=== PATIENT | male | born 1955 | race Caucasian/White ===

== ENCOUNTER → 2017-06-14 | Outpatient (CLI) | payer OTHER | LOC: M WUC 17:43 | DX: S86.111A Strain of other muscle(s) and tendon(s) of posterior muscle group at lower leg level, right leg, initial encounter (principal); R60.9 Edema, unspecified; X58.XXXA Exposure to other specified factors, initial encounter; Y93.9 Activity, unspecified | CPT/HCPCS: 73590 ==

== ENCOUNTER → 2020-05-22 | Outpatient (REF) | payer OTHER | LOC: M LAB REF 13:44 | PROVIDERS: ATTEND Physician Assistant | DX: L40.9 Psoriasis, unspecified (principal) ==

== ENCOUNTER → 2021-01-13 | Outpatient (REF) | payer OTHER | LOC: M SMT 08:54 | PROVIDERS: ATTEND Urology | DX: R97.20 Elevated prostate specific antigen [PSA] (principal) ==

== ENCOUNTER → 2021-03-04 | Outpatient (CLI) | payer OTHER ==
[~2021-03-04] MED LIST: FLON1SPR; RIZA10TA58 PO; VERA120T71 PO
== END ==
LOC: M LABSMTC 10:22
PROVIDERS: ATTEND Anesthesiology
DX: Z01.812 Encounter for preprocedural laboratory examination (principal); Z20.822 Contact with and (suspected) exposure to COVID-19

== ENCOUNTER 2021-03-09 06:20 | Inpatient (IN) | payer OTHER ==
[~2021-03-09] VITALS: Ht 176.5 cm; Wt 98.8 kg
[~2021-03-09 06:20] MED LIST changes: +HEPARIN SOD (PORCINE) 5000UNITS/ML 1ML VIAL/SYRINGE SQ ONE; +LR 1,000 ML IV ONE; +ceFAZolin SOD 2 GM in IV 1 EA IV ONE
--- OUTSIDE RECORDS SUMMARY | 2021-03-09 06:25 | CCD ---
Author Author [facility] Organization [facility] Address Unknown Phone Unavailable Care Team Providers Care Commercial Credit Head Name Role Phone Edie Bryce Unavailable PROBLEMS Type Condition ICD9-CM Code [id number] Code Onset Dates Condition S tatus W/U Status Risk SNOMED Code Notes Problem Psoriasis vulgaris L40.0 Active confirmed 2 37375754 Problem Prostate cancer C61 Active confirmed 3990 54261 Problem Rosacea L71.9 Active confirmed 690014278 Problem Psoriasis L40.9 Active confirmed 0263170 ALLERGIES No Known Allergies ENCOUNTERS from 1955 to 2021-02-04 Encounter Location Date Provider Diagnosis [facility] [address] [phone] [place] [address] Jan, Bryce Irizarry Prostate cancer C61 IMMUNIZATIONS No Information SOCIAL HISTORY Tobacco Use: Social History Observation Description Date Details (start date - stop date) Current Smoker Sex Assigned At : Social History Observation Description Sex Assigned At Unknown Language: Question Answer Notes Languages spoken: Turkmen Amish: Question Answer Notes Amish No mormon beliefs that would impact health care. Alcohol Screening: Question Answer Notes Did you have a drink containing alcohol in the past year? Ye s Points 3 Interpretation Negative How many drinks did you have on a typica l day when you were drinking in the past year? 3 or 4 (1 point) How often did you have a drink containing alcohol in t he past year? Two to four times a month (2 points) Tobacco Use: Question Answer Notes Are you a: current smoker Are you interested in quitting? Ready to quit REASON FOR REFERRAL No Information VITAL SIGNS No information MEDICATIONS Medication SIG (Take, Route, Frequency, Duration) Notes Start Da te End Date Status Cipro 500 MG 1 tablet Orally Start day prior to biopsy for 3 days Jun, Not-Taking Cipro 500 MG 1 tablet Orally every 12 hrs for 3 day(s) Dec, Not-Taking Yanira Allergy 180 MG 1 tablet Orally Once a day for 30 day(s) Active Ciclopirox Olamine 0.77 % 1 application Externally Twice a day f or 30 days Apr, Not-Taking Protopic 0.1 % 1 application to psoriasis p tj Externally Apply nightly to rash on penis as instructed for 30 Days Sep, Not-Taking Fleet Enema 7-19 GM/118ML as directed Rectal once Dec, Not-Taking Fexofenadine HCl Not-Taki ng Tinactin 1 % 1 application Externally Once a day Not-Taking Nasal Saline Not-Taking PROCEDURES No Information RESULTS No Results REASON FOR VISIT No Information MEDICAL (GENERAL) HISTORY Type Description Date Medical History elevated psa Medical History Prostate cancer Surgical History Steel Plate L Toe Surgical History carpal tunnel bilateral Surgical History cubital tunnel Surgical History trus biopsy 01/13/21 Goals Section No Information Health Concerns No Information MEDICAL EQUIPMENT No Information MENTAL STATUS No Information FUNCTIONAL STATUS No Information ASSESSMENTS Encounter Date Diagnosis Assessment Notes Treatment Notes Treatm ent Clinical Notes Jan, Prostate cancer (ICD-10 - C61) PLAN OF TREATMENT Treatment Notes Test Name Order Date Comprehensive Metabolic Profile (CMP) 2021-01-25 CBC - Complete Blood Count 2021-01-25 URINE CULTURE 2021-01-25 [facility] Chest, 2 view (PA\Lat) 2021-01-25 Electrocardiogram (EKG) 2021-01-25 Next Appt Details Provider Name:Paulo Wilson, 03:00:00 PM, [address], , [place], [address], Provider Name:Bhavna Mendez, 07:30:00 AM, [address] [place] [address], , [place], [address], Insurance Providers Payer Name Payer Address Payer Phone Insured Name Patient Relati onship to Insured Coverage Start Date Coverage End Date [employer] [address] [place] [address] BRY CASEY
--- OUTSIDE RECORDS SUMMARY | 2021-03-09 06:25 | CCD ---
Author Author [facility] Organization [facility] Address Unknown Phone Unavailable Care Team Providers Care Radio Director Name Role Phone Steve, Paulo Unavailable PROBLEMS Type Condition ICD9-CM Code [id number] Code Onset Dates Condition S tatus W/U Status Risk SNOMED Code Notes Problem Prostate cancer C61 Active confirmed 3990 90631 Problem Preop testing Z01.818 Active confirmed 98446 9001 Problem Malignant neoplasm of prostate C61 Active confir med 773408515 Problem Rosacea L71.9 Active confirmed 962838596 Problem Psoriasis L40.9 Active confirmed 2479480 Problem Psoriasis vulgaris L40.0 Active confirmed 2 80168332 ALLERGIES No Known Allergies ENCOUNTERS from 1955 to 2021-02-12 Encounter Location Date Provider Diagnosis [facility] [address] [phone] [place] [address] Jan, Paulo Wilson Prostate cancer C61 and Preop testing Z0 1.818 IMMUNIZATIONS No Information SOCIAL HISTORY Tobacco Use: Social History Observation Description Date Details (start date - stop date) Current Smoker Sex Assigned At : Social History Observation Description Sex Assigned At Unknown Language: Question Answer Notes Languages spoken: [place] Mandaen: Question Answer Notes Mandaen No anabaptism beliefs that would impact health care. Alcohol [...] Information RESULTS No Results REASON FOR VISIT Surgery MEDICAL (GENERAL) HISTORY Type Description Date Medical [...] Notes Jan, Prostate cancer (ICD-10 - C61) Jan, Preop testing (ICD-10 - Z01.818) PLAN OF TREATMENT Treatment Notes Test Name Order Date PT & APTT 2021-02-04 Next Appt Details Provider Name:Viki Hahn, 2021-02-23 4 08:30:00 AM, [address], , [place], [address], Provider Name:Bhavna Mendez, 07:30:00 AM, [address] [place] [address], , [place], [address], Insurance Providers Payer Name Payer Address Payer Phone Insured Name Patient Relati onship to Insured Coverage Start Date Coverage End Date [facility] [address] [facility] [phone] BRY CASEY
--- OUTSIDE RECORDS SUMMARY | 2021-03-09 06:25 | CCD ---
Author Author [facility] Organization [facility] Address Unknown Phone Unavailable Care Team Providers Care C S S Representative Name Role Phone Steve Paulo Unavailable PROBLEMS Type Condition ICD9-CM Code UJA68-EU Code Onset Dates Condition S tatus W/U Status Risk SNOMED Code Notes Problem Prostate cancer C61 Active confirmed 3990 01011 Problem Preop testing Z01.818 Active confirmed 23698 9001 Problem Malignant neoplasm of prostate C61 Active confir med 022549203 Problem Rosacea L71.9 Active confirmed 789707397 Problem Psoriasis L40.9 Active confirmed 6461278 Problem Psoriasis vulgaris L40.0 Active confirmed 2 00609528 ALLERGIES No Known Allergies ENCOUNTERS from 1955 to 2021-02-12 Encounter Location Date Provider Diagnosis [facility] [address] [phone] [place] [address] Jan, Paulo Wilson IMMUNIZATIONS No Information SOCIAL HISTORY Tobacco Use: Social History Observation Description Date Details (start date - stop date) Current Smoker Sex Assigned At : Social History Observation Description Sex Assigned At Unknown Language: Question Answer Notes Languages spoken: Malian Latter-Day: Question Answer Notes Latter-Day No mandaeism beliefs that would impact health care. Alcohol [...] Information RESULTS No Results REASON FOR VISIT post op appt MEDICAL (GENERAL) HISTORY Type Description Date Medical History elevated psa Medical History Prostate cancer Surgical History Steel Plate L Toe Surgical History carpal tunnel bilateral Surgical History cubital tunnel Surgical History trus biopsy 01/13/21 Goals Section No Information Health Concerns No Information MEDICAL EQUIPMENT No Information MENTAL STATUS No Information FUNCTIONAL STATUS No Information ASSESSMENTS No Information PLAN OF TREATMENT Next Appt Details Provider Name:Viki Hahn, 2021-02-23 4 08:30:00 AM, [address] , , [place], [address], Provider Name:Bhavna Mendez, 07:30:00 AM, [address] [place] [address], , [place], [address], Insurance Providers Payer Name Payer Address Payer Phone Insured Name Patient Relati onship to Insured Coverage Start Date Coverage End Date [employer] [address] [place] [phone] BRY CASEY
--- OUTSIDE RECORDS SUMMARY | 2021-03-09 06:25 | CCD ---
Author Author [facility] [employer] Organization [facility] [employer] Address Unknown Phone Unavailable Care Team Providers Care Postal Support Employee Name Role Phone Bryce Irizarry Unavailable PROBLEMS Type Condition ICD9-CM Code [id number] Code Onset Dates Condition S tatus W/U Status Risk SNOMED Code Notes Problem Psoriasis vulgaris L40.0 Active confirmed 2 49903495 Problem Prostate cancer C61 Active confirmed 3990 01139 Problem Rosacea L71.9 Active confirmed 559632475 Problem Psoriasis L40.9 Active confirmed 9327813 ALLERGIES No Known Allergies ENCOUNTERS from 1955 to 2021-01-21 Encounter Location Date Provider Diagnosis [facility] [address] [phone] [place] [address] Dec, Bryce Irizarry Elevated PSA R97.20 IMMUNIZATIONS No Information SOCIAL HISTORY Tobacco Use: Social History Observation Description Date Details (start date - stop date) Current Smoker Sex Assigned At : Social History Observation Description Sex Assigned At Unknown Language: Question Answer Notes Languages spoken: Zimbabwean Mormonism: Question Answer Notes Mormonism No worship beliefs that would impact health care. Alcohol [...] REASON FOR REFERRAL No Information VITAL SIGNS Weight 218 lbs 22 Dec, 2020 Height 69 in Dec, BMI 32.19 kg/m2 Dec, Heart Rate 71 /min Dec, Respiratory Rate 18 /min Dec, Temperature 98.4 degrees Fahrenheit Dec, Oximetry 95 Dec, Blood pressure systolic 136 mm Hg Dec, Blood pressure diastolic 80 mm Hg Dec, MEDICATIONS Medication SIG (Take, Route, Frequency, Duration) [...] a day Not-Taking Nasal Saline Not-Taking PROCEDURES from 1955 to 2021-01-21 Procedure Date Ordered Result Body Site Medication: Bupivacaine 0.25% Dilutent 30ml (Marcaine) 2020-12-24 2 N/A Medication: 2% Lidocaine Dilutent 2021-01-13 N/A Med: Lidocaine Jelly 2% 6ml Intravesically (Glydo) 2021-01-13 N/A RESULTS No Results REASON FOR VISIT TRUS bx MEDICAL (GENERAL) HISTORY Type Description Date Medical [...] Notes Treatment Notes Treatm ent Clinical Notes Dec, Elevated PSA (ICD-10 - R97.20) PLAN OF TREATMENT Treatment Notes Test Name Order Date Pathology Request For Service (Urology Only) 2020-12-24 2 PLZ PROSTATE BIOPSY 2021-01-13 Next Appt Details 1 to 2-week Reason:Status post prostate biopsy Provider Name:Bhavna Bea Mendez, 07:30:00 AM, [address] [place] [address], , [place], [address], Follow Up:1 to 2-weekStatus post prostate biopsy Insurance Providers Payer Name Payer Address Payer Phone Insured Name Patient Relati onship to Insured Coverage Start Date Coverage End Date [facility] [address] [facility] [id number] BRY CASEY
--- OUTSIDE RECORDS SUMMARY | 2021-03-09 06:25 | CCD ---
Author Author [facility] Organization [facility] Address Unknown Phone Unavailable Care Team Providers Care Charge Hand Name Role Phone Aj Maher Unavailable PROBLEMS Type Condition ICD9-CM Code GUC27-IF Code Onset Dates Condition S tatus W/U Status Risk SNOMED Code Notes Problem Psoriasis L40.9 Active confirmed 4540957 Problem Psoriasis vulgaris L40.0 Active confirmed 2 82668603 Problem Rosacea L71.9 Active confirmed 600147021 ALLERGIES No Known Allergies ENCOUNTERS from 1955 to 2021-01-11 Encounter Location Date Provider Diagnosis [facility] [address] [phone] [place] [address] Dec, Aj Maher Elevated PSA R97.20 and Elevated PSA, le ss than 10 ng/ml R97.20 IMMUNIZATIONS No Information SOCIAL HISTORY Tobacco Use: Social History Observation Description Date Details (start date - stop date) Current Smoker Sex Assigned At : Social History Observation Description Sex Assigned At Unknown Language: Question Answer Notes Languages spoken: Cayman Islander Methodist: Question Answer Notes Methodist No adventist beliefs that would impact health care. Alcohol [...] No Information VITAL SIGNS Weight 218 lbs 14 Sep, 2021 Weight-kg 98.88 kg Dec, Height 69 in Dec, BMI 32.19 kg/m2 Dec, Heart Rate 77 /min Dec, Respiratory Rate 18 /min Dec, Temperature 97.6 degrees Fahrenheit Dec, Oximetry 97 Dec, Blood pressure systolic 140 mm Hg Dec, Blood pressure diastolic 86 mm Hg Dec, MEDICATIONS Medication SIG (Take, Route, Frequency, Duration) Notes Start Da te End Date Status Fleet Enema 7-19 GM/118ML as directed Rectal once Dec, Active Cipro 500 MG 1 tablet Orally Start day prior to biopsy for 3 days Jun, Not-Taking Cipro 500 MG 1 tablet Orally every 12 hrs for 3 day(s) Dec, Active Fexofenadine HCl Not-Taki ng Yanira Allergy 180 MG 1 tablet Orally Once a day for 30 day(s) Active Protopic 0.1 % 1 application to psoriasis p tj Externally Apply nightly to rash on penis as instructed for 30 Days Sep, Active Nasal Saline Active Tinactin 1 % 1 application Externally Once a day Not-Taking Ciclopirox Olamine 0.77 % 1 application Externally Twice a day f or 30 days Apr, Active PROCEDURES No Information RESULTS No Results REASON FOR VISIT elevated psa MEDICAL (GENERAL) HISTORY Type Description Date Medical History elevated psa Surgical History Steel Plate L Toe Surgical History carpal tunnel bilateral Surgical History cubital tunnel Goals Section No Information Health Concerns No Information MEDICAL EQUIPMENT No Information MENTAL STATUS No Information FUNCTIONAL STATUS No Information ASSESSMENTS Encounter Date Diagnosis Assessment Notes Treatment Notes Treatm ent Clinical Notes Dec, Elevated PSA (ICD-10 - R97.20) Risk, benefits and complications of receiving a transrectal ultrasound biopsy of the prostates were discussed with the patient. Consent form was signed. He was scheduled for transrectal ultrasound biopsy of the prostate Dec, Elevated PSA, less than 10 ng/ml (ICD-10 - R97.2 0) PLAN OF TREATMENT Medication Medication Name Sig Start Date Stop Date Cipro 500 MG 1 tablet Orally every 12 hrs for 3 day(s) Dec Fleet Enema 7-19 GM/118ML as directed Rectal once Dec, Treatment Notes Assessment Notes Clinical Notes Elevated PSA Risk, benefits and c omplications of receiving a transrectal ultrasound biopsy of the prostates were discussed with the patient. Consent form was signed. He was scheduled for transrectal ultrasound biopsy of the prostate Treatment Notes Test Name Order Date BIOPSY OF PROSTATE 2021-01-05 Next Appt Details Provider Name:Bryce Guerra Rachellisetryne, 2020-12-24 2 01:00:00 PM, [address], , [place], [address], Provider Name:Bryce Guerra Edie, 2020-12-24 8 01:00:00 PM, [address], , [place], [address], Provider Name:Bhavna Bea Mendez, 07:30:00 AM, [address] [place] [address], , [place], [address], Insurance Providers Payer Name Payer Address Payer Phone Insured Name Patient Relati onship to Insured Coverage Start Date Coverage End Date [facility] [address] [facility] [phone] BRY CASEY
--- OUTSIDE RECORDS SUMMARY | 2021-03-09 06:25 | CCD ---
Author Author [facility] [employer] [facility] Organization [facility] [employer] [facility] Address Unknown Phone Unavailable Care Team Providers Care Portfolio Architect Name Role Phone Bryce Irizarry Unavailable PROBLEMS Type Condition ICD9-CM Code LBI38-LV Code Onset Dates Condition S tatus W/U Status Risk SNOMED Code Notes Problem Psoriasis vulgaris L40.0 Active confirmed 2 60264170 Problem Prostate cancer C61 Active confirmed 3990 70989 Problem Rosacea L71.9 Active confirmed 451900624 Problem Psoriasis L40.9 Active confirmed 8535177 ALLERGIES No Known Allergies ENCOUNTERS from 1955 to 2021-01-21 Encounter Location Date Provider Diagnosis [facility] [address] [phone] [place] [address] Dec, Bryce Irizarry Prostate cancer C61 IMMUNIZATIONS No Information SOCIAL HISTORY Tobacco Use: Social History Observation Description Date Details (start date - stop date) Current Smoker Sex Assigned At : Social History Observation Description Sex Assigned At Unknown Language: Question Answer Notes Languages spoken: Bhutanese Orthodoxy: Question Answer Notes Orthodoxy No mandaeism beliefs that would impact health [...] No Information VITAL SIGNS Weight 218 lbs 28 Dec, 2020 Height 69 in Dec, BMI 32.19 kg/m2 Dec, Heart Rate 72 /min Dec, Respiratory Rate 18 /min Dec, Temperature 98.4 degrees Fahrenheit Dec, Oximetry 94 Dec, Blood pressure systolic 132 mm Hg Dec, Blood pressure diastolic 78 mm Hg Dec, MEDICATIONS Medication SIG (Take, [...] Information RESULTS No Results REASON FOR VISIT TRUS f/u MEDICAL (GENERAL) HISTORY Type Description Date Medical [...] Treatment Notes Treatm ent Clinical Notes Dec, Prostate cancer (ICD-10 - C61) Dec, Other Prostatectomy material was p rinted PLAN OF TREATMENT Next Appt Details To meet Dr. Wilson Reason:Prostate can cer Provider Name:Bhavna Figueredo Vanessa, 07:30:00 AM, [address] [facility], , [place], [address], Follow Up:[facility] Insurance Providers Payer Name Payer Address Payer Phone Insured Name Patient Relati onship to Insured Coverage Start Date Coverage End Date [facility] [place] [address] [place] [phone] BRY CASEY
--- OUTSIDE RECORDS SUMMARY | 2021-03-09 06:25 | CCD ---
Author Author [facility] Organization [facility] [employer] Address Unknown Phone Unavailable Care Team Providers Care Salesperson Stereo Equipment Name Role Phone Bryce Irizarry Unavailable PROBLEMS Type Condition ICD9-CM Code UEF62-ZD Code Onset Dates Condition S tatus W/U Status Risk SNOMED Code Notes Problem Prostate cancer C61 Active confirmed 3990 20644 Problem Preop testing Z01.818 Active confirmed 14302 9001 Problem Malignant neoplasm of prostate C61 Active confir med 729009318 Problem Rosacea L71.9 Active confirmed 105805670 Problem Psoriasis L40.9 Active confirmed 6636741 Problem Psoriasis vulgaris L40.0 Active confirmed 2 42963725 ALLERGIES No Known Allergies ENCOUNTERS from 1955 to 2021-02-12 Encounter Location Date Provider Diagnosis [facility] [address] [phone] [place] [address] Jan, Bryce Irizarry IMMUNIZATIONS No Information SOCIAL HISTORY Tobacco Use: Social History Observation Description Date Details (start date - stop date) Current Smoker Sex Assigned At : Social History Observation Description Sex Assigned At Unknown Language: Question Answer Notes Languages spoken: Japanese Pentecostal: Question Answer Notes Pentecostal No sikh beliefs that would impact health care. Alcohol [...] OF TREATMENT Next Appt Details Provider Name:Viki Bea Hahn, 2021-02-23 4 08:30:00 AM, [address] [facility], , [place], [address], Provider Name:Bhavna Mendez, 07:30:00 AM, [address] [place] [address], , [place], [address], Insurance Providers Payer Name Payer Address Payer Phone Insured Name Patient Relati onship to Insured Coverage Start Date Coverage End Date [employer] [address] [place] [phone] BRY CASEY
--- OUTSIDE RECORDS SUMMARY | 2021-03-09 06:25 | CCD ---
Author Author [facility] [employer] Organization [facility] [employer] Address Unknown Phone Unavailable Care Team Providers Care Commodity Management Specialist Name Role Phone Lisandraryne Bryce Unavailable PROBLEMS Type Condition ICD9-CM Code [id number] Code Onset Dates Condition S tatus W/U Status Risk SNOMED Code Notes Problem Psoriasis L40.9 Active confirmed 0951812 Problem Psoriasis vulgaris L40.0 Active confirmed 2 76689422 Problem Rosacea L71.9 Active confirmed 373536630 ALLERGIES No Known Allergies ENCOUNTERS from 1955 to 2021-01-12 Encounter Location Date Provider Diagnosis [facility] Urology [address] [phone] [place] [address] Dec, Bryce Irizarry IMMUNIZATIONS No Information SOCIAL HISTORY Tobacco Use: Social History Observation Description Date Details (start date - stop date) Current Smoker Sex Assigned At : Social History Observation Description Sex Assigned At Unknown Language: Question Answer Notes Languages spoken: Albanian Samaritan: Question Answer Notes Samaritan No jew beliefs that would impact health care. Alcohol [...] Information RESULTS No Results REASON FOR VISIT 01/13/2021 appt MEDICAL (GENERAL) HISTORY Type Description Date Medical History elevated psa Surgical History Steel Plate L Toe Surgical History carpal tunnel bilateral Surgical History cubital tunnel Goals Section No Information Health Concerns No Information MEDICAL EQUIPMENT No Information MENTAL STATUS No Information FUNCTIONAL STATUS No Information ASSESSMENTS No Information PLAN OF TREATMENT Medication Medication Name Sig Start Date Stop Date Cipro 500 MG 1 tablet Orally every 12 hrs for 3 day(s) Dec Fleet Enema 7-19 GM/118ML as directed Rectal once Dec, Next Appt Details Provider Name:Byrce Irizarry, 2020-12-24 2 01:00:00 PM, [address], , [place], [address], Provider Name:Bryce Irizarry, 2020-12-24 8 01:00:00 PM, [address], , [place], [address], Provider Name:Bhavna Mendez, 07:30:00 AM, [address] [place] [address], , [place], [place], [address], Insurance Providers Payer Name Payer Address Payer Phone Insured Name Patient Relati onship to Insured Coverage Start Date Coverage End Date [facility] [address] [facility] [phone] BRY CASEY
--- OUTSIDE RECORDS SUMMARY | 2021-03-09 06:26 | CCD ---
Author Author [facility] Organization [facility] Address Unknown Phone Unavailable Care Team Providers Care Crimp Setter Name Role Phone Rogers Rosen MD Unavailable Rosen, G Edward MD Unavailable Rosen, G Edward MD Unavailable Rosen, G Edward MD Unavailable Rosen, G Edward MD Unavailable Rosen, G Edward MD Unavailable Rosen, G Edward MD Unavailable Rosen, G Edward MD Unavailable Rosen, G Edward MD Unavailable Rosen, G Edward MD Unavailable Rosen, G Edward MD Unavailable Rosen, G Edward MD Unavailable Rosen, G Edward MD Unavailable Rosen, G Edward MD Unavailable Rosen, G Edward MD Unavailable Rosen, G Edward MD Unavailable Rosen, G Edward MD Unavailable Rosen, G Edward MD Unavailable Rosen, G Edward MD Unavailable Rosen, G Edward MD Unavailable Rosen, G Edward MD Unavailable Rosen, G Ewdard MD Unavailable Rosen, G Edward MD Unavailable Rosen, G Edward MD Unavailable Rosen, G Edward MD Unavailable Rosen, G Edward MD Unavailable Rosen, G Edward MD Unavailable Rosen, G Edward MD Unavailable Rosen, G Edward MD Unavailable Rosen, G Edward EASTON Unavailable Rosen, G Edward EASTON Unavailable Rosen, G Edward MD Unavailable Rosen, G Edward EASTON Unavailable Rosen, G Edward EASTON Unavailable Rosen, G Edward EASTON Unavailable Rosen, G Edward MD Unavailable Rosen, G Edward MD Unavailable Rosen, G Edward MD Unavailable Rosen, G Edward EASTON Unavailable Rosen, G Edward EASTON Unavailable Rosen, G Edward EASTON Unavailable Rosen, G Edward EASTON Unavailable Rosen, G Edward EASTON Unavailable Rosen, G Edward EASTON Unavailable Rosen, G Edward EASTON Unavailable Rosen, G Edward EASTON Unavailable Rosen, G Edward EASTON Unavailable Nurys AGEE MD Unavailable Unavailable Nurys AGEE MD Unavailable Unavailable Nurys AGEE MD Unavailable Unavailable Nurys AGEE MD Unavailable Unavailable Sachi Maharaj MD Unavailable Unavailable Bea RODRIGUEZ MD Unavailable Unavailable Bea RODRIGUEZ MD Unavailable Unavailable Bea RORDIGUEZ MD Unavailable Unavailable Bea RODRIGUEZ MD Unavailable Unavailable Bea RODRIGUEZ MD Unavailable Unavailable Bea RODRIGUEZ MD Unavailable Unavailable Bea RODRIGUEZ MD Unavailable Unavailable Bea RODRIGUEZ MD Unavailable Unavailable Bea RODRIGUEZ MD Unavailable Unavailable Bea RODRIGUEZ MD Unavailable Unavailable Bea RODRIGUEZ MD Unavailable Unavailable Bea RODRIGUEZ MD Unavailable Unavailable Bea RODRIGUEZ MD Unavailable Unavailable Bea RODRIGUEZ MD Unavailable Unavailable Bea RODRIGUEZ MD Unavailable Unavailable Bea RODRIGUEZ MD Unavailable Unavailable Bea RODRIGUEZ MD Unavailable Unavailable Bea RODRIGUEZ MD Unavailable Unavailable Bea RODRIGUEZ MD Unavailable Unavailable Bea RODRIGUEZ MD Unavailable Unavailable Bea RODRIGUEZ MD Unavailable Unavailable Bea RODRIGUEZ MD Unavailable Unavailable Bea RODRIGUEZ MD Unavailable Unavailable Bea RODRIGUEZ MD Unavailable Unavailable Bea RODRIGUEZ MD Unavailable Unavailable Bea RODRIGUEZ MD Unavailable Unavailable Bea RODRIGUEZ MD Unavailable Unavailable Bea RODRIGUEZ MD Unavailable Unavailable Bea RODRIGUEZ MD Unavailable Unavailable Bea RODRIGUEZ MD Unavailable Unavailable Bea RODRIGUEZ MD Unavailable Unavailable Bea RODRIGUEZ MD Unavailable Unavailable Bea RODRIGUEZ MD Unavailable Unavailable Bea RODRIGUEZ MD Unavailable Unavailable Bea RODRIGUEZ MD Unavailable Unavailable Bea RODRIGUEZ MD Unavailable Unavailable Bea RODRIGUEZ MD Unavailable Unavailable Bea RODRIGUEZ MD Unavailable Unavailable Bea RODRIGUEZ MD Unavailable Unavailable Bea RODRIGUEZ MD Unavailable Unavailable Bea RODRIGUEZ MD Unavailable Unavailable Ashwini, Albert Roth MD Unavailable Unavailable Ashwini, Albert Aragonodavid EASTON Unavailable Unavailable Ashwini, Albert Aragonodavid EASTON Unavailable Unavailable Ashwini, Albert Aragonodavid EASTON Unavailable Unavailable Ashwini, Albert Aragonodavid EASTON Unavailable Unavailable Ashwini, Albert Aragonodavid EASTON Unavailable Unavailable Ashwini, Albert Aragonodavid EASTON Unavailable Unavailable Ashwini, Albert Aragonodavid EASTON Unavailable Unavailable Ashwini, R Gonzalez MD Unavailable Unavailable Ashwini, Albert Aragonodavid EASTON Unavailable Unavailable Ashwini, R Gonzalez MD Unavailable Unavailable Ashwini, R Gonzalez MD Unavailable Unavailable Ashwini, R Gonzalez MD Unavailable Unavailable Ashwini, R Gonzalez MD Unavailable Unavailable Ashwini, R Gonzalez MD Unavailable Unavailable Ashwini, R Gonzalez MD Unavailable Unavailable Ashwini, R Gonzalez MD Unavailable Unavailable Ashwini, R Gonzalez MD Unavailable Unavailable Ashwini, R Gonzalez MD Unavailable Unavailable Ashwini, R Gonzalez MD Unavailable Unavailable Ashwini, R Gonzalez MD Unavailable Unavailable Ashwini, R Gonzalez MD Unavailable Unavailable Ashwini, R Gonzalez MD Unavailable Unavailable Ashwini, R Gonzalez MD Unavailable Unavailable Ashwini, R Gonzalez MD Unavailable Unavailable Ashwini, R Gonzalez MD Unavailable Unavailable Ashwini, R Gonzalez MD Unavailable Unavailable Ashwini, R Gonzalez MD Unavailable Unavailable Ashwini, R Gonzalez MD Unavailable Unavailable Ashwini, R Gonzalez MD Unavailable Unavailable Ashwini, R Gonzalez MD Unavailable Unavailable Ashwini, R Gonzalez MD Unavailable Unavailable Ashwini, R Gonzalez MD Unavailable Unavailable Ashwini, R Gonzalez MD Unavailable Unavailable Ashwini, R Gonzalez MD Unavailable Unavailable Ashwini, R Gonzalez MD Unavailable Unavailable Ashwini, R Gonzalez MD Unavailable Unavailable Ashwini, R Gonzalez MD Unavailable Unavailable Ashwini, R Gonzalez MD Unavailable Unavailable Ashwini, R Gonzalez MD Unavailable Unavailable Ashwini, R Goznalez MD Unavailable Unavailable Ashwini, R Gonzalez MD Unavailable Unavailable Ashwini, R Gonzalez MD Unavailable Unavailable Ashwini, R Gonzalez MD Unavailable Unavailable Ashwini, R Gonzalez MD Unavailable Unavailable Ashwini, R Gonzalez MD Unavailable Unavailable Ashwini, R Gonzalez MD Unavailable Unavailable Ashwini, R Gonzalez MD Unavailable Unavailable Ashwini, R Gonzalez MD Unavailable Unavailable Ashwini, R Gonzalez MD Unavailable Unavailable Ashwini, R Gonzalez MD Unavailable Unavailable Ashwini, R Gonzalez MD Unavailable Unavailable Ashwini, R Gonzalez MD Unavailable Unavailable Ashwini, R Gonzalez MD Unavailable Unavailable Ashwini, R Gonzalez MD Unavailable Unavailable Ashwini, R Gonzalez MD Unavailable Unavailable Ashwini, R Gonzalez MD Unavailable Unavailable Ashwini, R Gonzalez MD Unavailable Unavailable Ashwini, R Gonzalez MD Unavailable Unavailable Ashwini, R Gonzalez MD Unavailable Unavailable Ashwini, R Gonzalez MD Unavailable Unavailable Ashwini, R Gonzalez MD Unavailable Unavailable Ashwini, R Gonzalez MD Unavailable Unavailable Ashwini, R Gonzalez MD Unavailable Unavailable Ashwini, R Gonzalez MD Unavailable Unavailable Ashwini, R Gonzalez MD Unavailable Unavailable Ashwini, R Gonzalez Unavailable Unavailable Ashwini, R Gonzalez Unavailable Unavailable Ashwini, R Gonzalez MD Unavailable Unavailable Ashwini, R Gonzalez Unavailable Unavailable Ashwini, R Gonzalez MD Unavailable Unavailable Ashwini, R Gonzalez MD Unavailable Unavailable Ashwini, R Gonzalez Unavailable Unavailable Ashwini, R Gonzalez MD Unavailable Unavailable Ashwini, R Gonzalez MD Unavailable Unavailable Ashwini, R Gonzalez MD Unavailable Unavailable Ashwini, Albert Roth MD Unavailable Unavailable Ashwini, Albert Roth MD Unavailable Unavailable Ashwini, Albert Roth MD Unavailable Unavailable Erich, A Tiffany ENT NURSE Unavailable Unavailable Erich, A Tiffany ENT NURSE Unavailable Unavailable Erich, A Tiffany ENT NURSE Unavailable Unavailable Erich, A Tiffany ENT NURSE Unavailable Unavailable Erich, A Tiffany ENT NURSE Unavailable Unavailable Erich, A Tiffany ENT NURSE Unavailable Unavailable Erich, A Tiffany ENT NURSE Unavailable Unavailable Erich, A Tiffany ENT NURSE Unavailable Unavailable Erich, A Tiffany ENT NURSE Unavailable Unavailable Erich, A Tiffany ENT NURSE Unavailable Unavailable Erich, A Tiffany ENT NURSE Unavailable Unavailable Erich, A Tiffany ENT NURSE Unavailable Unavailable Erich, A Tiffany ENT NURSE Unavailable Unavailable Erich, A Tiffany ENT NURSE Unavailable Unavailable Erich, A Tiffany ENT NURSE Unavailable Unavailable Erich, A Tiffany ENT NURSE Unavailable Unavailable Erich, A Tiffany ENT NURSE Unavailable Unavailable Erich, A Tiffany ENT NURSE Unavailable Unavailable Erich, A Tiffany ENT NURSE Unavailable Unavailable Erich, A Tiffany ENT NURSE Unavailable Unavailable Erich, A Tiffany ENT NURSE Unavailable Unavailable Erich, A Tiffany ENT NURSE Unavailable Unavailable Erich, A Tiffany ENT NURSE Unavailable Unavailable Erich, A Tiffany ENT NURSE Unavailable Unavailable Erich, A Tiffany ENT NURSE Unavailable Unavailable Erich, A Tiffany ENT NURSE Unavailable Unavailable Erich, A Tiffany ENT NURSE Unavailable Unavailable Erich, A Tiffany ENT NURSE Unavailable Unavailable Erich, A Tiffany ENT NURSE Unavailable Unavailable Erich, A Tiffany ENT NURSE Unavailable Unavailable Erich, A Tiffany ENT NURSE Unavailable Unavailable Erich, A Tiffany ENT NURSE Unavailable Unavailable Erich, A Tiffany ENT NURSE Unavailable Unavailable Erich, A Tiffany ENT NURSE Unavailable Unavailable Erich, A Tiffany ENT NURSE Unavailable Unavailable Erich, A Tiffany ENT NURSE Unavailable Unavailable Erich, A Tiffany ENT NURSE Unavailable Unavailable Erich, A Tiffany ENT NURSE Unavailable Unavailable Erich, A Tiffany ENT NURSE Unavailable Unavailable Erich, A Tiffany ENT NURSE Unavailable Unavailable Erich, A Tiffany ENT NURSE Unavailable Unavailable Erich, A Tiffany ENT NURSE Unavailable Unavailable Erich, A Tiffany ENT NURSE Unavailable Unavailable Erich, A Tiffany ENT NURSE Unavailable Unavailable Erich, A Tiffany ENT NURSE Unavailable Unavailable Erich, A Tiffany ENT NURSE Unavailable Unavailable Erich, A Tiffany ENT NURSE Unavailable Unavailable Erich, A Tiffany ENT NURSE Unavailable Unavailable Erich, A Tiffany ENT NURSE Unavailable Unavailable of L.C[facility] Medicine Occupation Unavailable Unavailable Mathur, Shekhar Brown MD Unavailable Unavailable Mathur, Shekhar Brown MD Unavailable Unavailable Mathur, Shekhar Brown MD Unavailable Unavailable Mathur, Shekhar Brown MD Unavailable Unavailable Mathur, Shekhar Brown MD Unavailable Unavailable Mathur, Shekhar Brown MD Unavailable Unavailable Mathur, Shekhar Brown MD Unavailable Unavailable Mathur, Shekhar Brown MD Unavailable Unavailable Mathur, Shekhar Brown MD Unavailable Unavailable Mathur, Shekhar Brown MD Unavailable Unavailable Mathur, Shekhar Brown MD Unavailable Unavailable Mathur, Shekhar Brown MD Unavailable Unavailable Mathur, Shekhar Brown MD Unavailable Unavailable Mathur, Shekhar Brown MD Unavailable Unavailable Mathur, Shekhar Brown MD Unavailable Unavailable Mathur, Shekhar Brown MD Unavailable Unavailable Mathur, Shekhar Brown MD Unavailable Unavailable Mathur, Shekhar Brown MD Unavailable Unavailable Mathur, Shekhar Brown MD Unavailable Unavailable Mathur, Shekhar Brown MD Unavailable Unavailable Mathur, Shekhar Brown MD Unavailable Unavailable Mathur, Shekhar Brown MD Unavailable Unavailable Mathur, Shekhar Brown MD Unavailable Unavailable Mathur, Shekhar Brown MD Unavailable Unavailable Mathur, Shekhar Brown MD Unavailable Unavailable Mathur, Shekhar Brown MD Unavailable Unavailable Mathur, Shekhar Brown MD Unavailable Unavailable Mathur, Shekhar Brown MD Unavailable Unavailable Mathur, Shekhar Brown MD Unavailable Unavailable Mathur, Shekhar Brown MD Unavailable Unavailable Mathur, Shekhar Brown MD Unavailable Unavailable Mathur, Shekhar Brown MD Unavailable Unavailable Mathur, Shekhar Brown MD Unavailable Unavailable Mathur, Shekhar Brown MD Unavailable Unavailable Mathur, Shekhar Brown MD Unavailable Unavailable Mathur, Shekhar Brown MD Unavailable Unavailable Mathur, Shekhar Brown MD Unavailable Unavailable Mathur, Shekhra Brown MD Unavailable Unavailable Mathur, Shekhar Brown MD Unavailable Unavailable Shekhar Mathur MD Unavailable Unavailable Shekhar Mathur MD Unavailable Unavailable Mathur, Shekhar Brown MD Unavailable Unavailable Mathur, Shekhar Brown MD Unavailable Unavailable Mathur, Shekhar Brown MD Unavailable Unavailable Mathur, Shekhar Brown MD Unavailable Unavailable Mathur, Shekhar Brown MD Unavailable Unavailable Mathur, Shekhar Brown MD Unavailable Unavailable Mathur, Shekhar Brown MD Unavailable Unavailable Mathur, Shekhar Brown MD Unavailable Unavailable Mathur, Shekhar Brown MD Unavailable Unavailable Mathur, Shekhar Brown MD Unavailable Unavailable Mathur, Shekhar Brown MD Unavailable Unavailable Mathur, Shekhar Brown MD Unavailable Unavailable MathurShekhar MD Unavailable Unavailable AshwiniAlbert MD Unavailable Unavailable AshwiniAlbert MD Unavailable Unavailable Ashwini, Albert Roth MD Unavailable Unavailable AshwiniAlbert laboy MD Unavailable Unavailable AshwiniAlbert laboy MD Unavailable Unavailable Ashwini, Albert Roth MD Unavailable Unavailable AshwiniAlbert laboy MD Unavailable Unavailable AshwiniAlbert MD Unavailable Unavailable Ashwini, R Gonzalez MD Unavailable Unavailable Ashwini, R Gonzalez MD Unavailable Unavailable Ashwini, R Gonzalez MD Unavailable Unavailable Ashwini, R Gonzalez MD Unavailable Unavailable Ashwini, R Gonzalez MD Unavailable Unavailable Ashwini, R Gonzalez MD Unavailable Unavailable Ashwini, R Gonzalez MD Unavailable Unavailable Ashwini, R Gonzalez MD Unavailable Unavailable Ashwini, R Gonzalez MD Unavailable Unavailable Ashwini, R Gonzalez MD Unavailable Unavailable Ashwini, R Gonzalez MD Unavailable Unavailable Ashwini, R Gonzalez MD Unavailable Unavailable Ashwini, R Gonzalez MD Unavailable Unavailable Ashwini, R Gonzalez MD Unavailable Unavailable Ashwini, R Gonzalez MD Unavailable Unavailable Ashwini, R Gonzalez MD Unavailable Unavailable Ashwini, R Gonzalez MD Unavailable Unavailable Ashwini, R Gonzalez MD Unavailable Unavailable Ashwini, R Gonzalez MD Unavailable Unavailable Ashwini, R Gonzalez MD Unavailable Unavailable Ashwini, R Gonzalez Unavailable Unavailable Ashwini, R Gonzalez MD Unavailable Unavailable Ashwini, R Gonzalez Unavailable Unavailable Ashwini, R Gonzalez MD Unavailable Unavailable Ashwini, R Gonzalez MD Unavailable Unavailable Ashwini, R Gonzalez MD Unavailable Unavailable Ashwini, R Gonzalez MD Unavailable Unavailable Ashwini, R Gonzalez MD Unavailable Unavailable Ashwini, R Gonzalez MD Unavailable Unavailable Ashwini, R Gonzalez MD Unavailable Unavailable Ashwini, R Gonzalez MD Unavailable Unavailable Ashwini, R Gonzalez MD Unavailable Unavailable Ashwini, R Gonzalez MD Unavailable Unavailable Ashwini, R Gonzalez MD Unavailable Unavailable Ashwini, R Gonzalez Unavailable Unavailable Ashwini, R Gonzalez MD Unavailable Unavailable Ashwini, R Gonzalez MD Unavailable Unavailable Ashwini, R Gonzalez MD Unavailable Unavailable Ashwini, R Gonzalez MD Unavailable Unavailable Ashwini, R Gonzalez MD Unavailable Unavailable Ashwini, R Gonzalez MD Unavailable Unavailable Ashwini, R Gonzalez Unavailable Unavailable Ashwini, R Gonzalez MD Unavailable Unavailable Ashwini, R Gonzalez MD Unavailable Unavailable Ashwini, R Gonzalez MD Unavailable Unavailable Ashwini, R Gonzalez MD Unavailable Unavailable Ashwini, R Gonzalez MD Unavailable Unavailable Ashwini, R Gonzalez MD Unavailable Unavailable Ashwini, R Gonzalez MD Unavailable Unavailable Ashwini, R Gonzalez MD Unavailable Unavailable Ashwini, R Gonzalez MD Unavailable Unavailable Ashwini, Albert Roth MD Unavailable Unavailable Ashwini, Albert Roth MD Unavailable Unavailable Ashwini, Albert Roth MD Unavailable Unavailable Ashwini, Albert Roth MD Unavailable Unavailable Ashwini, Albert Roth MD Unavailable Unavailable Ashwini, Albert Roth MD Unavailable Unavailable Ashwini, Albert Roth MD Unavailable Unavailable Ashwini, Albert Roth MD Unavailable Unavailable Ashwini, Albert Roth MD Unavailable Unavailable Ashwini, Albert Roth MD Unavailable Unavailable Ashwini, Albert Roth MD Unavailable Unavailable Ashwini, Albert Roth MD Unavailable Unavailable Ashwini, Albert Roth MD Unavailable Unavailable Ashwini, Albert Roth MD Unavailable Unavailable Ashwini, Albert Roth MD Unavailable Unavailable Ashwini, Albert Roth MD Unavailable Unavailable Ashwini, Albert Roth MD Unavailable Unavailable Ashwini, Albert Roth MD Unavailable Unavailable Ashwini, Albert Roth MD Unavailable Unavailable Ashwini, Albert Roth MD Unavailable Unavailable Shekhar Mathur MD Unavailable Unavailable Shekhar Mathur MD Unavailable Unavailable Shekhar Mathur MD Unavailable Unavailable Shekhar Mathur MD Unavailable Unavailable Shekhar Mathur MD Unavailable Unavailable Shekhar Mathur MD Unavailable Unavailable Shekhar Mathur MD Unavailable Unavailable Shekhar Mathur MD Unavailable Unavailable Shekhar Mathur MD Unavailable Unavailable Shekhar Mathur MD Unavailable Unavailable Shekhar Mathur MD Unavailable Unavailable Shekhar Mathur MD Unavailable Unavailable Shekhar Mathur MD Unavailable Unavailable Shekhar Mathur MD Unavailable Unavailable Shekhar Mathur MD Unavailable Unavailable Shekhar Mathur MD Unavailable Unavailable Shekhar Mathur MD Unavailable Unavailable Shekhar Mathur MD Unavailable Unavailable Shekhar Mathur MD Unavailable Unavailable Shekhar Mathur MD Unavailable Unavailable Shekhar Mathur MD Unavailable Unavailable Shekhar Mathur MD Unavailable Unavailable Shekhar Mathur MD Unavailable Unavailable Shekhar Mathur MD Unavailable Unavailable Shekhar Mathur MD Unavailable Unavailable Shekhar Mathur MD Unavailable Unavailable Shekhar Mathur MD Unavailable Unavailable Shekhar Mathur MD Unavailable Unavailable Shekhar Mathur MD Unavailable Unavailable Shekhar Mathur MD Unavailable Unavailable Shekhar Mathur MD Unavailable Unavailable Shekhar Mathur MD Unavailable Unavailable Shekhar Mathur MD Unavailable Unavailable Shekhar Mathur MD Unavailable Unavailable Shekhar Mathur MD Unavailable Unavailable Shekhar Mathur MD Unavailable Unavailable Shekhar Mathur MD Unavailable Unavailable Shekhar Mathur MD Unavailable Unavailable Shekhar Mathur MD Unavailable Unavailable Shekhar Mathur MD Unavailable Unavailable Shekhar Mathur MD Unavailable Unavailable Shekhar Mathur MD Unavailable Unavailable Mathur, Shekhar Kevin EASTON Unavailable Unavailable Mathur, Shekhar Kevin MD Unavailable Unavailable Mathur, Shekhar Kevin MD Unavailable Unavailable Mathur, Shekhar Kevin MD Unavailable Unavailable Mathur, Shekhar Kevin MD Unavailable Unavailable Mathur, Shekhar Kevin MD Unavailable Unavailable Mathur, Shekhar Kevin MD Unavailable Unavailable Mathur, Shekhar Kevin MD Unavailable Unavailable Mathur, Shekhar Brown MD Unavailable Unavailable Mathur, Shekhar Brown MD Unavailable Unavailable Mathur, Shekhar Brown MD Unavailable Unavailable Mathur, Shekhar Brown MD Unavailable Unavailable Re-disclosure Warning The records that you are about to access may contain information from federally-assisted alcohol or drug abuse programs. If such information is present, then the following federally mandated warning applies: This information has been disclosed to you from records protected by federal confidentiality rules (42 CFR part 2). The federal rules prohibit you from making any further disclosure of this information unless further disclosure is expressly permitted by the written consent of the person to whom it pertains or as otherwise permitted by 42 CFR part 2. A general authorization for the release of medical or other information is NOT sufficient for this purpose. The Federal rules restrict any use of the information to criminally investigate or prosecute any alcohol or drug abuse patient.The records that you are about to access may contain highly sensitive health information, the redisclosure of which is protected by Article 27-F of the [facility] Public Health law. If you continue you may have access to information: Regarding HIV / AIDS; Provided by facilities licensed or operated by the [facility] Office of Mental Health; or Provided by the [facility] Office for People With Developmental Disabilities. If such information is present, then the following [facility] mandated warning applies: This information has been disclosed to you from confidential records which are protected by state law. State law prohibits you from making any further disclosure of this information without the specific written consent of the person to whom it pertains, or as otherwise permitted by law. Any unauthorized further disclosure in violation of state law may result in a fine or halfway sentence or both. A general authorization for the release of medical or other information is NOT sufficient authorization for further disc losure. Allergies and Adverse Reactions Type Description Substance Reaction Status Data Source(s ) Drug allergy No Known Drug Allergies No Known Drug Allergies [facility] Food allergy No Known Food Allergies No Known Food Allergies [facility] environmental environmental sneezing, coughing, runny eyes SV [facility] Drug allergy No Known Allergies No Known Allergies [facility] Family History Family Member Name Family Member Gender Family Member Status Date o f Status Description Data Source(s) Unknown Condition [facility] Unknown Condition [facility] Unknown Condition [facility] Unknown Condition [facility] Unknown Unknown Problem MEDENT ([facility] Unknown Unknown Problem [facility] ([facility] Unknown [facility] Problem [facility] ([facility] Unknown Unknown Problem [facility] ([facility]) Unknown Unknown Problem [facility] ([facility]) Unknown Unknown Problem [facility] ([facility] Encounters Encounter Providers Location Date Indications Data Source(s ) Outpatient Attender: TERESA RODRIGUEZ MD 03/05/2021 01:53:00 PM [facility],Z01.[address] [place] [id number],Z01.818 Outpatient Attender: Gonzalez Maradiaga MD 03/01/2021 12:08:00 PM [facility],Z01.[address] [place] [id number],Z01.818 Outpatient Attender: Gonzalez Maradiaga MDReferrer: Gonzalez Maradiaga MD 03/01/2021 11:06:00 AM EST - 03/01/2021 12:03:00 PM EST [facility] Outpatient Attender: Gonzalez Maradiaga MDReferrer: Gonzalez Maradiaga MD 02/16/2021 10:58:00 [facility] [address] [facility] [address] 02/12/2021 12:00:00 AM EDT eCW1 ([facility]) Outpatient Attender: Gonzalez Maradiaga MD 02/05/2021 10:22:00 AM EDT J32.9 [facility] J32.9 Outpatient Attender: Gonzalez Maradiaga MDReferrer: Gonzalez Maradiaga MD 02/04/2021 11:25:00 AM EDT - 02/04/2021 12:12:00 PM EDT [facility] [place] [address] [facility] [address] 02/04/2021 12:00:00 AM EDT eCW1 [facility] [place] [address] [facility] [facility] [address] 02/01/2021 12:00:00 AM EDT eCW1 [facility] [place] [address] [facility] [address] 01/25/2021 12:00:00 AM EDT eCW1 [facility] [place] [address] [facility] [address] 01/19/2021 12:00:00 AM EDT eCW1 [facility] (Trus Bx1) Urology [address] [place] [address] 01/13/2021 12:00:00 AM EDT eCW1 [facility] [place] [address] [facility] [address] 01/12/2021 12:00:00 AM EDT eCW1 ([facility]) Outpatient Attender: Gonzalez Maradiaga MDReferrer: Gonzalez Maradiaga MD 01/11/2021 08:25:00 AM EDT - 01/11/2021 09:10:00 AM EDT [facility] Out[place] [address] [facility] [address] 01/05/2021 12:00:00 AM EDT eCW1 ([facility]) Recurring Patient Attender: Edward Rosen MDReferrer: Gonzalez Maradiaga MD 12/25/2020 12:07:50 PM EDT [place] [facility]ics Specia lists Outpatient Attender: Gonzalez Maradiaga MD 12/24/2020 09:08: 00 AM EDT HEADACHES,R51.9,R79.89,R97.20 [facility] HEADACHES,R51.9,R79.89,R97.20 Outpatient Attender: Gonzalez Maradiaga MD 12/21/2020 10:25:00 AM EDT RT FT PAIN [facility] RT FT PAIN Outpatient Attender: Gonzalez Maradiaga MDReferrer: Tiffany Veronica 12/21/2020 09:00:00 AM EDT - 12/21/2020 10:23:00 AM EDT [facility] Outpatient Attender: Kevin Poe/Grabiel/Gerry/Albert mejia 11/13/2020 09:30:00 AM EDT MEDENT ([facility]) Outpatient Attender: Kevin Mathur MD 10/27/2020 0 9:38:00 AM EDT NICOTINE DEPENDENCE [facility] NICOTINE DEPENDENCE [place] [address] [facility] [address] 10/19/2020 12:00:00 AM EDT eCW1 ([facility]) [place] [address] [place] [address] 10/05/2020 12:00:00 AM EDT eCW1 ([facility]) Outpatient Attender: Tiffany Jung NP 09/08 03:12:00 PM EDT - 09/16/2020 11:40:00 AM EDT [facility] V[facility] Patient discharged. [place] [address] [facility] [address] 08/10/2020 12:00:00 AM EDT eCW1 ([facility]) [place] [address] [facility] [address] 06/25/2020 12:00:00 AM EST [facility]CW1 [facility] Outpatient Attender: Peter Maharaj MD 06/23/2020 01:56:00 P M EST R97.20 [facility] R97.20 [place] [address] [facility] [address] 06/12/2020 12:00:00 AM EST eCW1 ([facility]) [place] [address] [facility] [address] 06/12/2020 12:00:00 AM EST eCW1 ([facility]) [place] [address] [facility] [address] 05/25/2020 12:00:00 AM EST eCW1 [facility] [place] [address] [facility] [address] 05/22/2020 12:00:00 AM EST eCW1 ([facility]) [place] [address] [facility] [address] 05/22/2020 12:00:00 AM EST eCW1 ([facility]) [place] [address] [facility] [address] 05/11/2020 12:00:00 AM EST eCW1 ([facility]) Outpatient Attender: Gonzalez Maradiaga MDReferrer: Tiffany Jung N P 04/16/2020 08:29:00 AM EST - 04/16/2020 09:21:00 AM EST [facility] Outpatient Attender: Nuris 04/16/2020 08:18:0 0 AM EST DOT PHYS [facility] DOT PHYS [place] [address] [facility] [address] 04/09/2020 12:00:00 AM EST eCW1 ([facility]) Outpatient Attender: BASIL AGEE MD 01/23 07:16:00 AM EDT - 02/19/2020 10:45:00 AM EDT Z80.0/COLONOSCOPY [id number] [facility] Z80.0/COLONOSCOPY [id number] Patient discharged. Outpatient Attender: BASIL AGEE MDReferrer: Tiffany boyce ENT NURSE 02/11/2020 08:03:00 AM EDT [facility] Outpatient Attender: Tiffany Jung NPReferrer: Tiffany yin ENT NURSE 02/06/2020 12:53:00 PM EDT - 02/06/2020 12:55:00 PM EDT [facility] Outpatient Attender: Tiffany Jung NPReferrer: Tiffany yin ENT NURSE 01/02/2020 08:14:00 AM EDT DIZZINESS [facility] DIZZINESS Functional Status Immunizations Vaccine Date Status Description Data Source(s) COVID-19 VACCINE Moderna 08/06/2020 12:00:00 AM EDT completed [facility] Vaccine Series Complete: YESThis Data wa s Submitted to [facility] Via ITeam. COVID-19 VACCINE Moderna 07/09/2020 12:00:00 AM EDT completed [facility] Vaccine Series Complete: NOThis Data was Submitted to [facility] Via ITeam. IIV3. This is one of two codes replacing CVX 15, which is being retired. 02/06/2020 12:00:00 AM EDT completed [facility] IIV3. This is one of two codes replacing CVX 15, which is being retired. 02/06/2020 12:00:00 AM EDT completed influenza vaccine, inactivated [facility] IIV3. This is one of two codes replacing CVX 15, which is being retired. 02/06/2020 12:00:00 AM EDT completed influenza vaccine, inactivated [facility] IIV3. This is one of two codes replacing CVX 15, which is being retired. 02/06/2020 12:00:00 AM EDT completed influenza vaccine, inactivated [facility] Medications Medication Brand Name Start Date Product Form Dose Route Admi nistrative Instructions Pharmacy Instructions Status Indications Reaction Description Data Source(s) 120 mg 02/04/2021 12:00:00 AM EDT tablet extended release 30 TAKE ONE TABLET BY MOUTH EVERY DAY TAKE ONE TABLET BY MOUTH EVERY DAY SOLD: 02/05/2021 [facility] 500 mg 01/05/2021 12:00:00 AM EDT tablet 6 TAKE ONE TABLET BY MOUTH EVERY 12 HOURS FOR 3 DAYS TAKE ONE TABLET BY MOUTH EVERY 12 HOURS FOR 3 DAYS SERENA [facility] Ciprofloxacin 500 MG Oral Tablet [Cipro] Cipro 500 MG Cipro 500 MG 01/05/2021 12:00:00 AM EDT 1.0 {tablet} active Ci pro 500 MG eCW1 ([facility]) Sodium Phosphate, Dibasic 59.3 MG/ML / S odium Phosphate, Monobasic 161 MG/ML Enema Fleet Enema 7-19 GM/118ML Fleet Enema 7-19 GM/118ML 01/05/2021 12:00:00 AM EDT suspended Fleet Enema 7- 19 GM/118ML eCW1 ([facility]) Ciprofloxacin 500 MG Oral Tablet [Cipro] Cipro 500 MG Cipro 500 MG 01/05/2021 12:00:00 AM EDT 1.0 {tablet} suspended Cipro 500 MG eCW1 ([facility]) Sodium Phosphate, Dibasic 59.3 MG/ML / S odium Phosphate, Monobasic 161 MG/ML Enema Fleet Enema 7-19 GM/118ML Fleet Enema 7-19 GM/118ML 01/05/2021 12:00:00 AM EDT active Fleet Enema 7-19 GM/118ML eCW1 ([facility]) Sodium Phosphate, Dibasic 59.3 MG/ML / S odium Phosphate, Monobasic 161 MG/ML Enema Fleet Enema 7-19 GM/118ML Fleet Enema 7-19 GM/118ML 01/05/2021 12:00:00 AM EDT suspended Fleet Enema 7- 19 GM/118ML eCW1 ([facility]) Sodium Phosphate, Dibasic 59.3 MG/ML / S odium Phosphate, Monobasic 161 MG/ML Enema Fleet Enema 7-19 GM/118ML Fleet Enema 7-19 GM/118ML 01/05/2021 12:00:00 AM EDT active Fleet Enema 7-19 GM/118ML eCW1 ([facility]) Ciprofloxacin 500 MG Oral Tablet [Cipro] Cipro 500 MG Cipro 500 MG 01/05/2021 12:00:00 AM EDT 1.0 {tablet} suspended Cipro 500 MG eCW1 ([facility]) Ciprofloxacin 500 MG Oral Tablet [Cipro] Cipro 500 MG Cipro 500 MG 01/05/2021 12:00:00 AM EDT 1.0 {tablet} suspended Cipro 500 MG eCW1 ([facility]) Sodium Phosphate, Dibasic 59.3 MG/ML / S odium Phosphate, Monobasic 161 MG/ML Enema Fleet Enema 7-19 GM/118ML Fleet Enema 7-19 GM/118ML 01/05/2021 12:00:00 AM EDT suspended Fleet Enema 7- 19 GM/118ML eCW1 ([facility]) Sodium Phosphate, Dibasic 59.3 MG/ML / S odium Phosphate, Monobasic 161 MG/ML Enema Fleet Enema 7-19 GM/118ML Fleet Enema 7-19 GM/118ML 01/05/2021 12:00:00 AM EDT suspended Fleet Enema 7- 19 GM/118ML eCW1 ([facility]) Ciprofloxacin 500 MG Oral Tablet [Cipro] Cipro 500 MG Cipro 500 MG 01/05/2021 12:00:00 AM EDT 1.0 {tablet} active Ci pro 500 MG eCW1 ([facility]) Ciprofloxacin 500 MG Oral Tablet [Cipro] Cipro 500 MG Cipro 500 MG 01/05/2021 12:00:00 AM EDT 1.0 {tablet} suspended Cipro 500 MG eCW1 ([facility]) Ciprofloxacin 500 MG Oral Tablet [Cipro] Cipro 500 MG Cipro 500 MG 01/05/2021 12:00:00 AM EDT 1.0 {tablet} suspended Cipro 500 MG eCW1 ([facility]) Ciprofloxacin 500 MG Oral Tablet [Cipro] Cipro 500 MG Cipro 500 MG 01/05/2021 12:00:00 AM EDT 1.0 {tablet} suspended Cipro 500 MG eCW1 ([facility]) Sodium Phosphate, Dibasic 59.3 MG/ML / S odium Phosphate, Monobasic 161 MG/ML Enema Fleet Enema 7-19 GM/118ML Fleet Enema 7-19 GM/118ML 01/05/2021 12:00:00 AM EDT suspended Fleet Enema 7- 19 GM/118ML eCW1 ([facility]) Sodium Phosphate, Dibasic 59.3 MG/ML / S odium Phosphate, Monobasic 161 MG/ML Enema Fleet Enema 7-19 GM/118ML Fleet Enema 7-19 GM/118ML 01/05/2021 12:00:00 AM EDT suspended Fleet Enema 7- 19 GM/118ML eCW1 ([facility]) 0.1 % 10/20/2020 12:00:00 AM EDT ointment 60 APPLY TO PSORIASIS NIGHTLY TO RASH ON PENIS DIRECTED APPLY TO PSORIASIS NIGHTLY TO RASH ON PE NIS DIRECTED SOLD: 10/22/2020 [facility] Tacrolimus 0.001 MG/MG Topical Ointment [Protopic] Pro topic 0.1 % Protopic 0.1 % 10/05/2020 12:00:00 AM EDT suspended Protopic 0.1 % eCW1 ([facility]) Tacrolimus 0.001 MG/MG Topical Ointment [Protopic] Pro topic 0.1 % Protopic 0.1 % 10/05/2020 12:00:00 AM EDT suspended Protopic 0.1 % eCW1 ([facility]) Tacrolimus 0.001 MG/MG Topical Ointment [Protopic] Pro topic 0.1 % Protopic 0.1 % 10/05/2020 12:00:00 AM EDT active Protopic 0.1 % eCW1 ([facility]) Tacrolimus 0.001 MG/MG Topical Ointment [Protopic] Pro topic 0.1 % Protopic 0.1 % 10/05/2020 12:00:00 AM EDT suspended Protopic 0.1 % eCW1 ([facility]) Tacrolimus 0.001 MG/MG Topical Ointment [Protopic] Pro topic 0.1 % Protopic 0.1 % 10/05/2020 12:00:00 AM EDT suspended Protopic 0.1 % eCW1 ([facility]) Tacrolimus 0.001 MG/MG Topical Ointment [Protopic] Pro topic 0.1 % Protopic 0.1 % 10/05/2020 12:00:00 AM EDT active Protopic 0.1 % eCW1 ([facility]) Tacrolimus 0.001 MG/MG Topical Ointment [Protopic] Pro topic 0.1 % Protopic 0.1 % 10/05/2020 12:00:00 AM EDT suspended Protopic 0.1 % eCW1 ([facility]) Tacrolimus 0.001 MG/MG Topical Ointment [Protopic] Pro topic 0.1 % Protopic 0.1 % 10/05/2020 12:00:00 AM EDT suspended Protopic 0.1 % eCW1 ([facility]) Tacrolimus 0.001 MG/MG Topical Ointment [Protopic] Pro topic 0.1 % Protopic 0.1 % 10/05/2020 12:00:00 AM EDT active Protopic 0.1 % eCW1 ([facility]) Tacrolimus 0.001 MG/MG Topical Ointment [Protopic] Pro topic 0.1 % Protopic 0.1 % 10/05/2020 12:00:00 AM EDT active Protopic 0.1 % eCW1 ([facility]) Ciprofloxacin 500 MG Oral Tablet [Cipro] Cipro 500 MG Cipro 500 MG 06/25/2020 12:00:00 AM EST 1.0 {tablet} suspended Cipro 500 MG eCW1 ([facility]) Ciprofloxacin 500 MG Oral Tablet [Cipro] Cipro 500 MG Cipro 500 MG 06/25/2020 12:00:00 AM EST 1.0 {tablet} suspended Cipro 500 MG eCW1 ([facility]) Ciprofloxacin 500 MG Oral Tablet [Cipro] Cipro 500 MG Cipro 500 MG 06/25/2020 12:00:00 AM EST 1.0 {tablet} active Ci pro 500 MG eCW1 ([facility]) Ciprofloxacin 500 MG Oral Tablet [Cipro] Cipro 500 MG Cipro 500 MG 06/25/2020 12:00:00 AM EST 1.0 {tablet} suspended Cipro 500 MG eCW1 ([facility]) Ciprofloxacin 500 MG Oral Tablet [Cipro] Cipro 500 MG Cipro 500 MG 06/25/2020 12:00:00 AM EST 1.0 {tablet} active Ci pro 500 MG eCW1 ([facility]) Ciprofloxacin 500 MG Oral Tablet [Cipro] Cipro 500 MG Cipro 500 MG 06/25/2020 12:00:00 AM EST 1.0 {tablet} suspended Cipro 500 MG eCW1 ([facility]) Ciprofloxacin 500 MG Oral Tablet [Cipro] Cipro 500 MG Cipro 500 MG 06/25/2020 12:00:00 AM EST 1.0 {tablet} suspended Cipro 500 MG eCW1 ([facility]) Ciprofloxacin 500 MG Oral Tablet [Cipro] Cipro 500 MG Cipro 500 MG 06/25/2020 12:00:00 AM EST 1.0 {tablet} suspended Cipro 500 MG eCW1 ([facility]) Ciprofloxacin 500 MG Oral Tablet [Cipro] Cipro 500 MG Cipro 500 MG 06/25/2020 12:00:00 AM EST 1.0 {tablet} suspended Cipro 500 MG eCW1 ([facility]) Ciprofloxacin 500 MG Oral Tablet [Cipro] Cipro 500 MG Cipro 500 MG 06/25/2020 12:00:00 AM EST 1.0 {tablet} active Ci pro 500 MG eCW1 ([facility]) Ciprofloxacin 500 MG Oral Tablet [Cipro] Cipro 500 MG Cipro 500 MG 06/25/2020 12:00:00 AM EST 1.0 {tablet} suspended Cipro 500 MG eCW1 ([facility]) Ciprofloxacin 500 MG Oral Tablet [Cipro] Cipro 500 MG Cipro 500 MG 06/25/2020 12:00:00 AM EST 1.0 {tablet} suspended Cipro 500 MG eCW1 ([facility]) Ciprofloxacin 500 MG Oral Tablet [Cipro] Cipro 500 MG Cipro 500 MG 06/25/2020 12:00:00 AM EST 1.0 {tablet} suspended Cipro 500 MG eCW1 ([facility]) 0.77 % 05/27/2020 12:00:00 AM EST cream 90 APPLY 1 APPLICATION TOPICALLY TWO TIMES A DAY TO PENIS APPLY 1 APPLICATION TOPICALLY TWO TIMES A DAY TO PENIS SOLD: 06/09/2020 [facility] ciclopirox 7.7 MG/ML Topical Cream Ciclopirox Olamine 0.77 % Ciclopirox Olamine 0.77 % 05/22/2020 12:00:00 AM EST 1.0 {application} suspended Ciclopirox Olamine 0.77 % eCW1 ([facility]) ciclopirox 7.7 MG/ML Topical Cream Ciclopirox Olamine 0.77 % Ciclopirox Olamine 0.77 % 05/22/2020 12:00:00 AM EST 1.0 {application} active Ciclopirox Olamine 0.77 % eCW1 ([facility]) ciclopirox 7.7 MG/ML Topical Cream Ciclopirox Olamine 0.77 % Ciclopirox Olamine 0.77 % 05/22/2020 12:00:00 AM EST 1.0 {application} active Ciclopirox Olamine 0.77 % eCW1 ([facility]) ciclopirox 7.7 MG/ML Topical Cream Ciclopirox Olamine 0.77 % Ciclopirox Olamine 0.77 % 05/22/2020 12:00:00 AM EST 1.0 {application} active Ciclopirox Olamine 0.77 % eCW1 ([facility]) ciclopirox 7.7 MG/ML Topical Cream Ciclopirox Olamine 0.77 % Ciclopirox Olamine 0.77 % 05/22/2020 12:00:00 AM EST 1.0 {application} suspended Ciclopirox Olamine 0.77 % eCW1 ([facility]) ciclopirox 7.7 MG/ML Topical Cream Ciclopirox Olamine 0.77 % Ciclopirox Olamine 0.77 % 05/22/2020 12:00:00 AM EST 1.0 {application} suspended Ciclopirox Olamine 0.77 % eCW1 ([facility]) ciclopirox 7.7 MG/ML Topical Cream Ciclopirox Olamine 0.77 % Ciclopirox Olamine 0.77 % 05/22/2020 12:00:00 AM EST 1.0 {application} active Ciclopirox Olamine 0.77 % eCW1 ([facility]) ciclopirox 7.7 MG/ML Topical Cream Ciclopirox Olamine 0.77 % Ciclopirox Olamine 0.77 % 05/22/2020 12:00:00 AM EST 1.0 {application} suspended Ciclopirox Olamine 0.77 % eCW1 ([facility]) ciclopirox 7.7 MG/ML Topical Cream Ciclopirox Olamine 0.77 % Ciclopirox Olamine 0.77 % 05/22/2020 12:00:00 AM EST 1.0 {application} suspended Ciclopirox Olamine 0.77 % eCW1 ([facility]) ciclopirox 7.7 MG/ML Topical Cream Ciclopirox Olamine 0.77 % Ciclopirox Olamine 0.77 % 05/22/2020 12:00:00 AM EST 1.0 {application} active Ciclopirox Olamine 0.77 % eCW1 ([facility]) ciclopirox 7.7 MG/ML Topical Cream Ciclopirox Olamine 0.77 % Ciclopirox Olamine 0.77 % 05/22/2020 12:00:00 AM EST 1.0 {application} active Ciclopirox Olamine 0.77 % eCW1 ([facility]) ciclopirox 7.7 MG/ML Topical Cream Ciclopirox Olamine 0.77 % Ciclopirox Olamine 0.77 % 05/22/2020 12:00:00 AM EST 1.0 {application} active Ciclopirox Olamine 0.77 % eCW1 ([facility]) ciclopirox 7.7 MG/ML Topical Cream Ciclopirox Olamine 0.77 % Ciclopirox Olamine 0.77 % 05/22/2020 12:00:00 AM EST 1.0 {application} active Ciclopirox Olamine 0.77 % eCW1 ([facility]) ciclopirox 7.7 MG/ML Topical Cream Ciclopirox Olamine 0.77 % Ciclopirox Olamine 0.77 % 05/22/2020 12:00:00 AM EST 1.0 {application} active Ciclopirox Olamine 0.77 % eCW1 ([facility]) ciclopirox 7.7 MG/ML Topical Cream Ciclopirox Olamine 0.77 % Ciclopirox Olamine 0.77 % 05/22/2020 12:00:00 AM EST 1.0 {application} active Ciclopirox Olamine 0.77 % eCW1 ([facility]) ciclopirox 7.7 MG/ML Topical Cream Ciclopirox Olamine 0.77 % Ciclopirox Olamine 0.77 % 05/22/2020 12:00:00 AM EST 1.0 {application} active Ciclopirox Olamine 0.77 % eCW1 ([facility]) ciclopirox 7.7 MG/ML Topical Cream Ciclopirox Olamine 0.77 % Ciclopirox Olamine 0.77 % 05/22/2020 12:00:00 AM EST 1.0 {application} suspended Ciclopirox Olamine 0.77 % eCW1 ([facility]) 180 mg 05/20/2020 12:00:00 AM EST tablet 90 TAKE ONE TABLET BY MOUTH EVERY DAY TAKE ONE TABLET BY MOUTH EVERY DAY SOLD: 05/22/2020 [facility] 180 mg 02/17/2020 12:00:00 AM EDT tablet 30 TAKE ONE TABLET BY MOUTH EVERY DAY TAKE ONE TABLET BY MOUTH EVERY DAY SOLD: 02/20/2020 [facility] Fexofenadine hydrochloride 180 MG Oral Tablet Fexofenadine 02/14/2020 09:15:06 AM EDT [address] [facility] Fexofenadine hydrochloride 180 MG Oral Tablet Fexofenadine 02/14/2020 09:15:06 AM EDT [address] [facility] Fexofenadine hydrochloride 180 MG Oral Tablet Fexofenadine 02/14/2020 09:15:06 AM EDT 180 MG active [facility] Afluria Qd 2019-(3yr up)(PF) (flu vac [id number] 36mos up(P F)) 02/06/2020 12:53:26 PM EDT 60 MCG completed [facility] Afluria Qd 2019-21(3yr up)(PF) (flu vac [id number] 36mos up(P F)) 02/06/2020 12:53:26 PM EDT 60 MCG completed [facility] Afluria Qd 2019-21(3yr up)(PF) (flu vac [id number] 36mos up(P F)) 02/06/2020 12:53:26 PM EDT 60 MCG completed [facility] Qd 2019-21(3yr up)(PF) (flu vac [id number] 36mos up(P F)) 02/06/2020 12:53:26 PM EDT 60 MCG completed [facility] Insurance Providers Payer name Policy type / Coverage type Policy ID Covered green party ID Covered green party's relationship to guido Policy Guido Plan Information [facility] [id number] SELF [id number] [employer] [place] Other 0 [id number] Family Dependent Marleni Planck Meleski 0 [employer] [place] Other 0 [id number] Family Dependent Marleni Planck Meleski 0 [employer] [place] Other 0 [id number] Family Dependent Marleni Planck Meleski 0 [employer] [place] Other 0 [id number] Family Dependent Marleni Planck Meleski 0 [employer] [place] Other 0 [id number] Family Dependent Marleni Planck Meleski 0 [employer] [place] Other 0 [id number] Family Dependent Marleni Planck Meleski 0 [employer] [place] Other 0 [id number] Family Dependent Marleni Planck Meleski 0 [employer] [place] Other 0 [id number] Family Dependent Marleni Planck Meleski 0 [employer] [facility] F [id number] SELF [id number] [employer] [place] Other 0 [id number] Family Dependent Marleni Planck Meleski 0 [employer] [place] Other 0 [id number] Family Dependent Marleni Planck Meleski 0 [employer] [place] Other 0 [id number] Family Dependent Marleni Planck Meleski 0 MVP H [id number] Self [id number] [employer] [place] Other 0 [id number] Family Dependent Marleni Planck Meleski 0 [employer] [place] Other 0 [id number] Family Dependent Marleni Planck Meleski 0 [employer] [place] Other 0 [id number] Family Dependent Marleni Planck Meleski 0 [employer] [place] Other 0 [id number] Family Dependent Marleni Planck Meleski 0 [employer] [place] Other 0 [id number] Family Dependent Marleni Planck Meleski 0 MVP H [id number] Self [id number] Workers Compensation [id number] Self [id number] [facility] Healthcare F [id number] SELF [id number] [facility] [id number] SP [id number] [facility] HEALTH CARE [id number] STATE INSURANCE FUND [id number] SP [id number] [facility] Health Maintenance Organization (HMO) [id number] Family Dependent [id number] [facility] Health Maintenance Organization (HMO) [id number] Family Dependent [id number] STATE INSURANCE FUND O [id number] S [id number] OTHER WORKERS COMPENSATION SP [facility] HEALTH CARE O [id number] S [id number] [facility] Commercial [id number] Self [id number] [facility] Commercial [id number] Family Dependent [id number] [facility] Commercial [id number] Family Dependent [facility] Health Maintenance Organization (HMO) [id number] Fa jean claude Dependent [facility] HEALTH CARE [id number] SP [id number] Problems, Conditions, and Diagnoses Code Display Name Description Problem Type Effective Dates Data Source(s) C61 [id number] Malignant neoplasm of prostate Problem 02/12 12:00:00 AM EDT eCW1 ([facility]) Z01.818 Pre-procedure evaluation check Preop testing Problem 02/05/2021 12:00:00 AM EDT eCW1 ([facility]) C61 [id number] Prostate cancer Problem 01/19/2021 12:00:00 AM EDT eCW1 ([facility]) L40.0 [id number] Psoriasis vulgaris Problem 10/05/2020 12:00: 00 AM EDT eCW1 ([facility]) Surgeries/Procedures Procedure Description Date Indications Data Source(s) Med: Lidocaine Jelly 2% 6ml Intravesically (Glydo) 01/13/2021 12:00:00 AM EDT eCW1 ([facility]) Medication: 2% Lidocaine Dilutent 01/13/2021 12:00:00 AM EDT eCW1 ([facility]) Medication: Bupivacaine 0.25% Dilutent 30ml (Marcaine) 01/13/2021 12:00:00 AM EDT eCW1 ([facility]) OFFICE OUTPATIENT VISIT 25 MINUTES 11/13/2020 12:00:00 AM EDT MEDENT ([facility], ) Bronchospasm Evaluation 10/29/2020 12:00:00 [facility] Plethysmography Determination Lung Volumes & Per Airway Resi st 10/29/2020 12:00:00 AM EDT MEDENT ([facility], ) DIFFUSING CAPACITY 10/29/2020 12:00:00 AM [facility] Med: Derm 1% Lidocaine with Epinephrine Injection Intr adermally to marked areas 10/05/2020 12:00:00 AM EDT eCW1 ([facility]) Results ID Date Data Source [id number] 03/05/2021 02:57:00 PM [facility] Name Value Range Interpretation Code Description Data Janki rce(s) Supporting Document(s) Prothrombin Time (Patient) 10.8 s 9.6-12.3 N [facility] INR 1.0 0.9-1.1 [facility] THE INR IS OPERATIONALLY DEFINED FOR VINOD SH PLASMA FROMPATIENTS STABILIZED ON ORAL ANTICOAGULANTS.ROUTINE ANTICOAGULANT THERAPY 2.0-3.0RECURRENT SYSTEMIC EMBOLISM/HEART VALVE REPLACEMENT 2.5-3.5 aPTT.lupus sensitive (LA screen) 25.8 s 22.7-31.6 [facility] ID Date Data Source [id number] 03/02/2021 07:39:00 AM [facility] Name Value Range Interpretation Code Description Data Janki rce(s) Supporting Document(s) Bacteria identified in Urine by Culture [facility] ID Date Data Source [id number] 03/01/2021 01:04:00 PM EST [facility] Name Value Range Interpretation Code Description Data Janki rce(s) Supporting Document(s) Leukocytes [#/volume] in Blood by Automated count 8.0 10*3/uL 4.45-10 .71 N [facility] Erythrocytes [#/volume] in Blood by Automated count 4.91 10*6/uL 4.3- 6.1 N [facility] Hemoglobin [Moles/volume] in Blood 14.8 g/dL 13-18 N [facility] Hematocrit [Volume Fraction] of Blood by Automated count 44.0 % 4 2-52 N [facility] Erythrocyte mean corpuscular volume [Ent itic volume] in Cord blood by Automated count 90 fL 80-96 N [facility] ital Erythrocyte mean corpuscular hemoglobin [Entitic mass] by Au tomated count 30 pg 27-31 N [facility] Erythrocyte mean corpuscular hemoglobin concentration [Mass/volume] in Cord blood 34 g/dL 33-37 N [facility] ital Erythrocyte distribution width [Entitic volume] by Automated count 12 % 11-15 N [facility] Platelets [#/volume] in Blood by Automated count 224 10*3/uL 130-472 N [facility] Platelet mean volume [Entitic volume] in Blood 10.1 fL 9.1-13.1 N [facility] Neutrophils/100 leukocytes in Blood by Automated count 63.6 % 41- 77 N [facility] Neutrophils [#/volume] in Blood by Automated count 5.1 U 1.7-7.6 N [facility] Lymphocytes/100 leukocytes in Blood by Automated count 25.0 % 14- 46 N [facility] Lymphocytes [#/volume] in Blood by Automated count 2.0 U 0.6-4.6 N [facility] Monocytes/100 leukocytes in Blood by Automated count 8.4 % 4-12 N [facility] Monocytes [#/volume] in Blood by Automated count 0.7 U 0.2-1.2 N [facility] Eosinophils/100 leukocytes in Blood by Automated count 1.6 % 0-7 N [facility] Eosinophils [#/volume] in Blood by Automated count 0.1 U 0.0-0.5 N [facility] Basophils/100 leukocytes in Blood by Automated count 0.8 % 0.4-1 .3 N [facility] Basophils [#/volume] in Blood by Automated count 0.1 U 0.0-0.2 N [facility] NUCLEATED RED BLOOD CELL 0 % [facility] NUCLEATED RED BLOOD CELL# 0 U [facility] Immature granulocytes [Presence] in Blood by Automated count 0-2 N [facility] Immature granulocytes [#/volume] in Blood by Automated count 0.1 U 0-0.1 N [facility] Manual Differential panel - Blood NO [facility] ID Date Data Source [id number] 03/01/2021 01:53:00 PM EST [facility] Name Value Range Interpretation Code Description Data Janki rce(s) Supporting Document(s) Urea nitrogen [Mass/volume] in Serum or Plasma 20 mg/dL 9-23 N [facility] Sodium [Moles/volume] in Serum or Plasma 142 mmol/L 132-146 N [facility] Potassium [Moles/volume] in Serum or Plasma 4.4 mmol/L 3.5-5.5 N [facility] Chloride [Moles/volume] in Serum or Plasma 108 mmol/L 99-109 N [facility] Carbon dioxide, total [Moles/volume] in Serum or Plasma 29 mmol/L 20 -31 N [facility] Anion gap in Serum or Plasma 9 mmol/L 8-16 N L [facility] Glucose [Mass/volume] in Serum or Plasma 94 mg/dL 74-106 N [facility] Creatinine 1.2 mg/dL 0.5-1.1 Above high normal [facility] Glomerular filtration rate/1.73 sq M.pre dicted [Volume Rate/Area] in Serum or Plasma Greater Than 60 ABOVE 60 [facility] Alanine aminotransferase [Enzymatic acti vity/volume] in Serum or Plasma by With P-5'-P 58 U/L 10-49 Above high normal [facility] Aspartate aminotransferase [Enzymatic ac tivity/volume] in Serum or Plasma by With P-5'-P 24 U/L 0-33 N [facility] pital Alkaline phosphatase [Enzymatic activity/volume] in Serum or Plasma 80 U/L 45-129 N [facility] Calcium [Mass/volume] in Serum or Plasma 8.9 mg/dL 8.5-10.1 N [facility] Bilirubin.total [Mass/volume] in Serum or Plasma 0.4 mg/dL 0.3-1.2 [facility] Albumin [Mass/volume] in Serum or Plasma by Bromocresol purple (BCP) dye binding method 3.7 g/dL 3.2-4.8 N [facility] ital Protein [Mass/volume] in Serum or Plasma 7.1 g/dL 5.7-8.2 [facility] ID Date Data Source [id number] 03/01/2021 12:22:00 PM EST [facility] [address] [place] [address] [phone] NAME SEX PT STATUS ACCOUNT NUMBER KIRSTIN MAC REG REF [id number] ORDERING PHYSICIAN LOCATION MEDICAL RECORD NO. Gonzalez Maradiaga MD [facility] [id number] ATTENDING PHYSICIAN DATE OF DATE OF EXAM/TIME Gonzalez Maradiaga MD 1955 03/01/211216 TYPE / EXAM Xray Chest 2 view PA/LAT REASON FOR EXAM Preoperative evaluation CLINICAL HISTORY: [facility] Preoperative evaluation COMPARISON: Comparison chest x-ray January 15, 2019. TECHNIQUE: 2 view chest x-ray. FINDINGS: The lungs are well-inflated and clear. The pleural angles are sharp. Heart size is normal. Pulmonary vasculature is not increased. No significant bony abnormality is seen.. Thoracic aorta is somewhat tortuous as before. IMPRESSION: No active disease. Reported By Terrence Giordano MD on 03/01/211221 Signed By Terrence Giordano MD on 03/01/211222 Date Time CC: Terrence Giordano M.D.; Gonzalez Maradiaga MD Techn: CUMME Trans Dt/Tm: Trans by: DT Prt Dt/Tm: [id number]: Total DLP = 0.00 mGy-cm Fluoroscopy Time (in secs): Name Value Range Interpretation Code Description Data Janki rce(s) Supporting Document(s) ID Date Data Source [id number] 03/01/2021 11:07:00 AM [facility] Patient Name: KIRSTIN MAC : 1955 Sex: M Pt Unit #: [id number] Location:[facility] Provider: Visit Date/Time: 03/01/21 Primary Insurance: MVP Secondary Insurance: Self Pay Intake Vital Signs 03/01/21 11:17 Current Height 5 ft 9.5 in Current Weight 216 lb Weight Measurement Method Stated by Patient BMI 31.4 BP 130/74 Blood Pressure Location Lt brachial Position Sitting Pulse 69 Pulse Strength Normal Pulse Source Pulse Oximeter Pulse Oximetry (%) 96 Oxygen Delivery Method room air Intake Visit Reasons: Migraines Nurse Note: Pt's here for a regular visit and pre-op clearance. Pt's having laparoscopic prostatectomy w/ lymph node dissection w/ Dr. Rodriguez on 03/09/21. Stock Replenisher Required: No Accompanied by: Self / Same as Patient Is patient in pain?: No Allergies No Known Drug Allergies Allergy (Verified 12/21/20 09:39) No Known Food Allergies Allergy (Verified 12/21/20 09:39) environmental Allergy (Severe, Uncoded 02/19/20 06:54) sneezing, coughing, runny eyes Medications - Last Reconciled 03/01/21 by Gonzalez Maradiaga M.D. ciclopirox 0.77% 1 applic topical BID fexofenadine (Yanira Allergy) 180 mg PO Q24H fluticasone propionate 50 mcg/actuation 50 mcg intranasal DAILY rizatriptan 10 mg PO Q2H PRN verapamil ER 120 mg PO QDAY Vision Wearing glasses?: No Fall Risk History of falls: No Ambulatory Aid:: None Gait/Transferring:: Normal Medications:: Antihypertensives HIV Testing Offer - ages 13-64 HIV testing Offer: No Requirement for HIV testing offer been met?: Patient reports past refusal Hep C Testing Offered: No Hep C Requirement met: Patient reports past refusal Do you need a note to return Do you need a note to return to daycare/school/sports/work: No Coronavirus Screening Screening Are you currently positive or on isolation for COVID ?: No Do you have any NEW signs of one or more of the following?: no symptoms Do you have NEW signs of at least two of the following?: no symptoms HPI Additional HPI HPI Details: Patient came to the office for preoperative optimization. He is having robotic prostatectomy for his prostate cancer. He also mention of having developed venereal warts for which he is using ciclopirox ointment. Headache Associated symptoms: Denies chest pain, fatigue, fever(s) or palpitations Pre-Operative H P Patient is having robotic prostatectomy Surgery Information Proposed Surgical Procedure: Robotic prostatectomy Date of surgery: 03/09/21 Surgeon: Dr. Rodriguez Anesthesia: general Covid Screening Pre-Op Covid testing ordered?: Yes Exercise tolerance Can climb one flight of stairs (12-13 steps) in less than 30 seconds without stopping and without symptoms: Yes Distance able to walk (blocks): More than 2 blocks Risk factors Pulmonary risk factors: age > 60 Active cardiac conditions: none Active risk factors: none Sleep apnea risks: Yes (uses a CPAP machine) Pertinent Past History Medical History: Sleep Apnea Previous surgical complications: No Previous anesthesia intolerance: No Steroid use in last 6 months: No Allergies to meds or foods: No Pertinent Family History Family hx adverse reaction to anesthesia: No Family history coagulopathy: No Surgical Risk Surgical risk for this patient: Low (ACS calculator for risk was used) PFSH Medical History Adenocarcinoma of prostate Chronic sinusitis Cluster headache Headache High serum low density lipoprotein (LDL) cholesterol AVANI (obstructive sleep apnea) Psoriasis RBBB Smoker unmotivated to quit Surgical History History of - surgery Family History Father d Colon cancer Diabetes Mother Cancer Stroke Brother Unexpected sudden of infant Brother No problems noted. Sister No problems noted. Sister No problems noted. Sister No problems noted. Sister No problems noted. Son No problems noted. Daughter No problems noted. Social History Does the Patient have a Healthcare Proxy: No (DECLINES) Does Patient have a DNR?: No Does Patient have a Living Will?: No household members: spouse housing: house marital status: highest education level completed: GED or equivalent service: No current occupational status: retired current occupation: Retired local combination truck driver leisure activities: other Hx Recent Travel (where): No well-balanced diet: daily caffeine: Yes high-fat food intake: 3 or more times/day daily servings fruits/ve-4 daily servings of milk/calcium: 0-1 eating out: other (not often) reads food labels: seldom or never during the past year weight has: remained stable Smoking Status: Current every day smoker tobacco type: cigarettes how long ago did patient quit smoking: pt is quitting again before operation. quit status: has quit before substance use type: marijuana seatbelt use: always helmet use: Yes water heater temp set < 120 deg: Yes working smoke detector in home: Yes fire extinguisher in home: No carbon monox detector in home: Yes firearms in home: Yes victim of physical abuse: No victim of emotional abuse: No victim of sexual abuse: No Review of Systems Const Denies anorexia, Denies fatigue and Denies fever(s) ENT Denies dysphagia, Denies dizziness and Denies disequilibrium Card Denies chest pain, Denies pedal edema, Denies lightheadedness, Denies palpitations and Denies dyspnea Resp Denies cough, Denies excessive phlegm production, Denies pain on inspiration, Denies dyspnea and Denies wheezing GI Denies abdominal pain, Denies change in bowel habits, Denies dysphagia, Denies early satiety and Denies heartburn Neuro Denies dizziness, Denies paresthesias and Denies disequilibrium Endo Denies fatigue and Denies palpitations Aller/Immun Denies wheezing Exam Const General: cooperative, healthy appearing, no acute distress, well developed and well groomed Nutritional Appearance: obese Orientation: alert and awake Eyes Pupils: PERRL Neck Neck: normal visual inspection, no lymphadenopathy, supple and no JVD present Carotids: normal carotid upstroke Resp Effort Inspection: normal respiratory effort Auscultation: clear to auscultation bilaterally Percussion: percussion normal Cardio Jugular venous pressure: no JVD Rate: regular rate Rhythm: regular rhythm Heart Sounds: S1 normal and S2 normal GI Inspection: Yes normal to inspection Palpation: soft and nontender Auscultation: normal bowel sounds Neuro General: gait normal Extrem General: normal to inspection and no clubbing, cyanosis or edema Assessment Plan Assessment Plan (1) Pre-op evaluation: Code(s): Z01.818 - Encounter for other preprocedural examination Plan: Based on today's physical evaluation and review of the available data including EKG, chest x-ray andlab data, Mr. Mac is medically optimized for the proposed robotic prostatectomy surgical procedure. A printed medication list with preoperative instructions was given to him. If there are any medical concerns, please reach me at [phone]. (2) Wilbert ocarcinoma of prostate: Status: Acute Code(s): C61 - Malignant neoplasm of prostate SNOMED Code(s): 726211900 Category: Medical Plan: Patient is now proceeding for a robotic prostatectomy for his prostate cancer. (3) Cluster headache: Status: Acute Code(s): G44.009 - Cluster headache syndrome, unspecified, not intractable SNOMED Code(s): 720192610 Category: Medical Plan: In case if the patient develops a cluster headache, he may be administered 100% oxygen for a brief period of time until the headache resolves. This has been effective in the past. (4) High serum low density lipoprotein (LDL) cholesterol: Status: Acute Code(s): R79.89 - Other specified abnormal findings of blood chemistry SNOMED Code(s): 942061714 Category: Medical Plan: Neither this condition nor its management will impact the proposed surgery. (5) AVANI (obstructive sleep apnea): Status: Acute Co mment: CPAP Code(s): G47.33 - Obstructive sleep apnea (adult) (pediatric) SNOMED Code(s): 95663657 Category: Medical Plan: His respiratory status will need to be closely monitored while under the effect of anesthesia. (6) RBBB: Status: Acute Code(s): I45.10 - Unspecified right bundle-branch block SNOMED Code(s): 28840854 Category: Medical Plan: EKG again revealed right bundle branch block. This is not a new finding. This should not have any impact on the proposed surgery. Plan: Patient came for a preoperative optimization visit. His surgical risk was calculated and is found to be low. Return appointment will be in June as previously scheduled. Dermatology referral was created at the patient's request. Orders: Orders [facility] Today C61 - Malignant neoplasm of prostate, Z01.818 - Encounter for other preprocedural examination CBC W AUTO DIFF Today C61 - Malignant neoplasm of prostate, Z01.818 - [place] unter for other preprocedural examination Urine culture Today C61 - Malignant neoplasm of prostate, Z01.818 - Encounter for other preprocedural examination Xray Chest 2 view PA/LAT Today C61 - Malignant neoplasm of prostate, Z01.818 - Encounter for other preprocedural examination Referrals Dermatology Referral A63.0 - Anogenital (venereal) warts, L57.0 - Actinic keratosis Additional Comments Additional Comments: This document was dictated using Fast FiBR speech recognition software. A reasonable attempt to proofread has been made to minimize errors. Please call if you notice any errors or have any questions. Orders Follow Up: 07/14/21 (Sleep apnea) Coding Level of Care Code 40755 Est Pt Intermediate Comp Coding comments Coding Comments Additional info for the ice cutter: Preoperative optimization visit with EKG Exam Comprehensive Diagnoses Adenocarcinoma of prostate C61 Cluster headache G44.009 High serum low density lipoprotein (LDL) cholesterol R79.89 Pre-op evaluation Z01.818 AVANI (obstructive sleep apnea) G47.33 RBBB I45.10 CPT Codes ELECTROCARDIOGRAM COMPLETE - 19008 (43666) Additional Codes Intake - Is patient in pain?: No (1126F) <Electronically signed by Gonzalez Maradiaga MD> 03/01/212050 Name Value Range Interpretation Code Description Data Janki rce(s) Supporting Document(s) ID Date Data Source [id number] 02/16/2021 11:03:00 AM EDT [facility] Patient Name: KIRSTIN MAC : 1955 Sex: M Pt Unit #: [id number] Location:[facility]. Provider: Visit Date/Time: 02/16/21 Primary Insurance: MVP Secondary Insurance: Self Pay Intake Nurse Note Intake Visit Reasons: Flu shot Nurse Note: Pt was given a Flu vaccine for preventive purposes. Immunizations flu vac [id number] 36mos up(PF) Performing Provider: Gonzalez Maradiaga M.D. Administered by: Benita Vieyra on 02/16/21 11:06 Dose Route Admin Location Lot Number Expiration Date NDC Manufactu rer 0.5 mL IM Left deltoid [id number] 10/21/21 00542-028-90 [employer] VIS Given Date VIS Provided VIS Publication Date 02/16/21 Single Vaccine 20 Eligibility Eligibility Date Funding Source Not [facility] Eligible 02/16/21 Private Assessment Plan Assessment Plan Orders: Orders INJ - Influenza Vaccine Today Z23 - Encounter for immunization <Electronically signed by Gonzalez Maradiaga MD> 02/16/21 1130 Name Value Range Interpretation Code Description Data Janki rce(s) Supporting Document(s) ID Date Data Source [id number] 02/05/2021 10:58:00 AM EDT [facility] Name Value Range Interpretation Code Description Data Janki rce(s) Supporting Document(s) Leukocytes [#/volume] in Blood by Automated count 5.9 10*3/uL 4.45-10 .71 N [facility] Erythrocytes [#/volume] in Blood by Automated count 4.67 10*6/uL 4.3- 6.1 N [facility] Hemoglobin [Moles/volume] in Blood 14.3 g/dL 13-18 N [facility] Hematocrit [Volume Fraction] of Blood by Automated count 42.6 % 4 2-52 N [facility] Erythrocyte mean corpuscular volume [Ent itic volume] in Cord blood by Automated count 91 fL 80-96 N [facility] ital Erythrocyte mean corpuscular hemoglobin [Entitic mass] by Au tomated count 31 pg 27-31 N [facility] Erythrocyte mean corpuscular hemoglobin concentration [Mass/volume] in Cord blood 34 g/dL 33-37 N [facility] ital Erythrocyte distribution width [Entitic volume] by Automated count 13 % 11-15 N [facility] Platelets [#/volume] in Blood by Automated count 203 10*3/uL 130-472 N [facility] Platelet mean volume [Entitic volume] in Blood 9.3 fL 9.1-13.1 N [facility] Neutrophils/100 leukocytes in Blood by Automated count 59.5 % 41- 77 N [facility] Neutrophils [#/volume] in Blood by Automated count 3.5 U 1.7-7.6 N [facility] Lymphocytes/100 leukocytes in Blood by Automated count 28.3 % 14- 46 N [facility] Lymphocytes [#/volume] in Blood by Automated count 1.7 U 0.6-4.6 N [facility] Monocytes/100 leukocytes in Blood by Automated count 9.0 % 4-12 N [facility] Monocytes [#/volume] in Blood by Automated count 0.5 U 0.2-1.2 N [facility] Eosinophils/100 leukocytes in Blood by Automated count 1.9 % 0-7 N [facility] Eosinophils [#/volume] in Blood by Automated count 0.1 U 0.0-0.5 N [facility] Basophils/100 leukocytes in Blood by Automated count 0.8 % 0.4-1 .3 N [facility] Basophils [#/volume] in Blood by Automated count 0.1 U 0.0-0.2 N [facility] NUCLEATED RED BLOOD CELL 0 % [facility] NUCLEATED RED BLOOD CELL# 0 U [facility] Immature granulocytes [Presence] in Blood by Automated count 0-2 N [facility] Immature granulocytes [#/volume] in Blood by Automated count 0.0 U 0-0.1 N [facility] Manual Differential panel - Blood NO [facility] ID Date Data Source [id number] 02/05/2021 10:45:00 AM EDT [facility] [address] [place] [id number] [phone] NAME SEX PT STATUS ACCOUNT NUMBER KIRSTIN MAC REG REF [id number] ORDERING PHYSICIAN LOCATION MEDICAL RECORD NO. Gonzalez Maradiaga MD LAB [id number] ATTENDING PHYSICIAN DATE OF DATE OF EXAM/TIME Gonzalez Maradiaga MD 1955 02/05/21 / 1029 TYPE / EXAM Xray Sinuses complete REASON FOR EXAM Maxillary sinus congestion, R>>L Sinus xray History/ indication given by ordering clinician:[facility] Maxillary sinus congestion, R>>L Views: 4 Comparison:None currently available. FINDINGS: Frontal Sinus: Frontal sinus hypoplastic Ethmoid Air Cells: Clear Left Maxillary Sinus: Clear Right Maxillary Sinus: Clear Sphenoid Sinus: Clear Additional Comments: None Follow up: CT as clinically indicated if symptoms persist. IMPRESSION: The paranasal sinuses are clear. Thank you for allowing us to provide care to your patient. Reported By Rashaun Pablo MD on 02/05/21 1045 Signed By Rashaun Pablo MD on 02/05/21 1046 Date Time CC: Gonzalez Maradiaga MD; Rashaun Pablo Techn: CARRC Trans Dt/Tm: Trans by: DT Prt Dt/Tm: 7411-5461: Total DLP = 0.00 mGy-cm Fluoroscopy Time (in secs): Name Value Range Interpretation Code Description Data Janki rce(s) Supporting Document(s) ID Date Data Source [id number] 02/04/2021 11:26:00 AM EDT [facility] Patient Name: KIRSTIN MAC : 1955 Sex: M Pt Unit #: [id number] Location:[facility] Provider: Visit Date/Time: 02/04/21 Primary Insurance: [facility] Secondary Insurance: Self Pay Intake Vital Signs 02/04/21 11:26 Current Height 5 ft 9.5 in Current Weight 216 lb Weight Measurement Method Stated by Patient BMI 31.4 BP 136/82 Blood Pressure Location Lt brachial Position Sitting Pulse 82 Pulse Strength Normal Pulse Source Pulse Oximeter Pulse Oximetry (%) 95 Oxygen Delivery Method room air Intake Visit Reasons: Migraines Nurse Note: Pt has been having a migraine everyday around 10-10:30 am. Pt will take a Rizatriptan and will startto feel better after 45 minutes. Pt states he may have a sinus infection and that may be the cause of his migraine. Stock Replenisher Required: No Accompanied by: Self / Same as Patient Is patient in pain?: Yes Pain scale (1-10): 7 Allergies No Known Drug Allergies Allergy (Verified 12/21/20 09:39) No Known Food Allergies Allergy (Verified 12/21/20 09:39) environmental Allergy (Severe, Uncoded 02/19/20 06:54) sneezing, coughing, runny eyes Medications - Last Reconciled 02/04/21 by Gonzalez Maradiaga M.D. fexofenadine (Yanira Allergy) 180 mg PO Q24H fluticasone propionate 50 mcg/actuation 50 mcg intranasal DAILY rizatriptan 10 mg PO Q2H PRN Vision Wearing glasses?: No Fall Risk History of falls: No Ambulatory Aid:: None Gait/Transferring:: Normal Medications:: No High Risk Me dications HIV Testing Offer - ages 13-64 HIV testing Offer: No Requirement for HIV testing offer been met?: Patient reports past refusal Hep C Testing Offered: No Hep C Requirement met: Patient reports past refusal Do you need a note to return Do you need a note to return to daycare/school/sports/work: No Coronavirus Screening Screening Are you currently positive or on isolation for COVID ?: No Do you have any NEW signs of one or more of the following?: no symptoms Do you have NEW signs of at least two of the following?: headache HPI Additional HPI HPI Details: Patient came to the office for urgent evaluation of his hemicranial headache. He was clutching at his left side stating that the headache was unbearable. He had photophobia. He complained of left-sided nasal congestion and watering from the left eye. He thought he had a sinus infection which was precipitating his headaches. He denied fever or chills. He was blowing clear discharge from his nostril. There is no vision loss. There is no distortion of smell or taste. He has had similar headaches in the past as well. He takes rizatriptan with relief in his headache. There areno other neurologic symptoms. He also has noticed a correlation between his alcohol consumption andheadaches. He also continues to smoke on a regular basis. Headache Associated symptoms: Reports nasal congestion PFSH Medical History Abnormal PSA Chronic sinusitis Cluster headache Headache High serum low density lipoprotein (LDL) cholesterol Smoker unmotivated to quit Surgical History (Updated 02/04/21 @ 11:41 by Gonzalez Maradiaga M.D.) History of - surgery Family History Father Colon cancer Diabetes Mother Cancer Stroke Brother Unexpected sudden of infant Brother No problems noted. Sister No problems noted. Sister No problems noted. Sister No problems noted. Sister No problems noted. Son No problems noted. Daughter No problems noted. Social History Does the Patient have a Healthcare Proxy: No (DECLINES) Does Patient have a DNR?: No Does Patient have a Living Will?: No household members: spouse housing: house marital status: highest education level completed: GED or equivalent service: No current occupational status: retired current occupation: Retired local combination truck driver leisure activities: other Hx Recent Travel (where): No well-balanced diet: daily caffeine: Yes high-fat food intake: 3 or more times/day daily servings fruits/ve-4 daily servings of milk/calcium: 0-1 eating out: other (not often) reads food labels: seldom or never during the past year weight has: remained stable Smoking Status: Current every day smoker tobacco type: cigarettes how long ago did patient quit smoking: pt is quitting again before operation. quit status: has quit before substance use type: marijuana seatbelt use: always helmet use: Yes water heater temp set < 120 deg: Yes working smoke detector in home: Yes fire extinguisher in home: No carbon monox detector in home: Yes firearms in home: Yes victim of physical abuse: No victim of emotional abuse: No victim of sexual abuse: No Review of Systems Const All systems reviewed are unremarkable except as noted in HPI and below Reports headache(s) ENT Reports headache(s) and Reports nasal congestion Neuro Reports headache(s) Exam Const General: acute distress and in distress moderate (Due to the left hemicranial headache) Nutritional Appearance: obese Orientation: alert and awake HENMT Head: normal to inspection Ears: hearing grossly normal bilaterally Eyes General: appearance normal, both eyes and all related structures Neck Neck: normal visual inspection Resp Effort Inspection: normal respiratory effort Cardio Rate: regular rate Rhythm: regular rhythm Neuro General: patient alert, patient awake, gait normal and moves all extremities Cognition: normal cognition Speech: speech normal Extrem General: normal to inspection Psych Appearance: grossly normal and well kempt Assessment Plan Assessment Plan (1) Cluster headache: Status: Acute Code(s): G44.009 - Cluster headache syndrome, unspecified, not intractable SNOMED Code(s): 012988501 Category: Medical Plan: Patient presented to the office for urgent evaluation of his left-sided hemicranial headache. His nasal congestion and watery eye is more consistent with cluster headaches rather than migraine. Patient was administered oxygen in the office and his headache impro no within a matter of a few minutes. He felt back to normal. I discussed the long-term management of his condition. Verapamilwill be initiated at a low dose. This is for prophylactic measure. Risks and benefits were discussed with the patient. I suggested that he return to the office in a couple weeks for a recheck. Patient was in agreement. Plan: Urgent evaluation for left- sided headache. Medications: New verapamil ER 120 mg PO QDAY 30 tabs 2RF Cluster headache G44.009 - Cluster headache syndrome, unspecified, not intractable Additional Comments Additional Comments: This document was dictated using Fast FiBR speech recognition software. A reasonable attempt to proofread has been made to minimize errors. Please call if you notice any errors or have any questions. Orders Instructions: Cluster Headache (AC) Acute Headache (AC) Follow Up: 03/01/21 (Cluster headache) Coding Level of Care Code 10608 Est Pt Extended Comp Coding comments Coding Comments Additional info for the ice cutter: Urgent evaluation of unilateral headache with office-based managementincluding administration of oxygen, discussion of differential diagnosis and prescribing treatment Exam Comprehensive Diagnoses Cluster headache G44.009 Additional Codes Intake - Is patient in pain?: Yes (1125F) <Electronically signed by Gonzalez Maradiaga MD> 02/04/212125 Name Value Range Interpretation Code Description Data Janki rce(s) Supporting Document(s) ID Date Data Source [id number] 01/11/2021 08:23:00 AM EDT [facility] Patient Name: KIRSTIN MAC : 1955 Sex: M Pt Unit #: [id number] Location:[facility] Provider: Visit Date/Time: 01/11/21 Primary Insurance: MVP Secondary Insurance: Self Pay Intake Vital Signs 01/11/21 08:25 Current Height 5 ft 9.5 in Current Weight 216 lb Weight Measurement Method Standing Scale BMI 31.4 BP 130/80 Blood Pressure Location Lt brachial Position Sitting Pulse 71 Pulse Strength Normal Pulse Source Pulse Oximeter Pulse Oximetry (%) 94 Oxygen Delivery Method room air Intake Visit Reasons: Elevated PSA Nurse Note: Pt's here to go over recent lab work; ? arthiritis in lower back. Stock Replenisher Required: No Accompanied by: Self / Same as Patient Is patient in pain?: Yes Pain scale (1-10): 1 Allergies No Known Drug Allergies Allergy (Verified 12/21/20 09:39) No Known Food Allergies Allergy (Verified 12/21/20 09:39) environmental Allergy (Severe, Uncoded 02/19/20 06:54) sneezing, coughing, runny eyes Medications - Last Reconciled 01/11/21 by Gonzalez Maradiaga M.D. fexofenadine (Yanira Allergy) 180 mg PO Q24H fluticasone propionate 50 mcg/actuation 50 mcg intranasal DAILY Vision Wearing glasses?: No Fall Risk History of falls: No Ambulatory Aid:: None Gait/Transferring:: Normal Medications:: No High Risk Medications HIV Testing Offer - ages 13-64 HIV testing Offer: No Requirement for HIV testing offer been met?: Patient reports past refusal Hep C Testing Offered: No Hep C Requir ement met: Patient reports past refusal Do you need a note to return Do you need a note to return to daycare/school/sports/work: No Coronavirus Screening Screening Are you currently positive or on isolation for COVID ?: No Do you have any NEW signs of one or more of the following?: no symptoms Do you have NEW signs of at least two of the following?: no symptoms HPI Additional HPI HPI Details: Patient had his annual labs done. He wanted to go over the test results. He already is scheduled to see a urologist for his abnormally elevated PSA. He is going to be following up with his orthopedic surgeon for his right foot pain. 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 Patient has been helping a friend with some concrete work. He was doing a lot of heavy lifting and bending as well as shoveling motion. He has now developed right lower back pain. He declines prescription medications. He will continue with pain relief with conservative means such as heating pad and analgesic rub. He had a question about his upcomingDOT physical recertification in light of his history of sleep apnea. [facility] Medical History Abnormal PSA Chronic sinusitis Headache High serum low density lipoprotein (LDL) cholesterol Smoker unmotivated to quit Surgical History History of - surgery History of - surgery Family History Father Colon cancer Diabetes Mother Cancer Stroke Brother Unexpected sudden of infant Brother No problems noted. Sister No problems noted. Sister No problems noted. Sister No problems noted. Sister No problems noted. Son No problems noted. Daughter No problems noted. Social History Does the Patient have a Healthcare Proxy: No (DECLINES) Does Patient have a DNR?: No Does Patient have a Living Will?: No household members: spouse housing: house marital status: highest education level completed: GED or equivalent service: No current occupational status: retired current occupation: Retired local combination truck driver leisure activities: other Hx Recent Travel (where): No well- balanced diet: daily caffeine: Yes high-fat food intake: 3 or more times/day daily servings fruits/ve-4 daily servings of milk/calcium: 0-1 eating out: other (not often) reads food labels: seldom or never during the past year weight has: remained stable Smoking Status: Current every day smoker tobacco type: cigarettes how long ago did patient quit smoking: pt is quitting again before operation. quit status: has quit before substance use type: marijuana seatbelt use: always helmet use: Yes water heater temp set < 120 deg: Yes working smoke detector in home: Yes fire extinguisher in home: No carbon monox detector in home: Yes firearms in home: Yes victim of physical abuse: No victim of emotional abuse: No victim of sexual abuse: No Review of Systems Const All systems reviewed are unremarkable except as noted in HPI and below Musc Reports back pain (Right-sided low back pain) and Reports arthralgias (Right ankle and first MTP joint) Exam Const General: cooperative and healthy appearing Nutritional Appearance: well nourished Orientation: alert Neck Neck: normal visual inspection Resp Effort Inspection: normal respiratory effort Cardio Rate: regular rate Rhythm: regular rhythm Neuro General: gait normal Assessment Plan Assessment Plan (1) High serum low density lipoprotein (LDL) cholesterol: Status: Acute Code(s): R79.89 - Other specified abnormal findings of blood chemistry SNOMED Code(s): 290460019 Category: Medical Plan: Results of the annual blood work were discussed with him. LDL is 123. Patient wants to try lifestyle measures for the next 6 months. (2) Elevated prostate specific antigen (PSA): Code(s): R97.20 - Elevated prostate specific antigen [PSA] (3) Low back pain: Status: Acute Code(s): M54.5 - Low back pain SNOMED Code(s): 938097218 Category: Medical Plan: Patient has exertion induced low back pain. He declined medical intervention. Plan: Patient has an elevated PSA. The transition appears to have begun in 2018. He has been set up with a urologist for expert evaluation. Additional Comments Additional Comments: Patient came primarily to go over his annual lab results. This was done. 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 Orders Instructions: Low Fat Diet (AC) Heart Healthy Diet (AC) Cholesterol and Your Health (AC) Lipid Profile (AC) Hyperlipidemia (AC) Follow Up: 6 Months (High LDL) Coding Level of Care Code 71586 Est Pt Extended Comp Coding comments Coding Comments Additional info for the ice cutter: Visit for detailed discussion about abnormal test results Exam Detailed Diagnoses Elevated prostate specific antigen (PSA) R97.20 High serum low density lipoprotein (LDL) cholesterol R79.89 Low back pain M54.5 Additional Codes Intake - Is patient in pain?: Yes (1125F) Time Spent (min) 30 <Electronically signed by Gonzalez Maradiaga MD> 01/11/21 0911 Name Value Range Interpretation Code Description Data Janki rce(s) Supporting Document(s) ID Date Data Source [id number] 12/24/2020 09:44:00 AM EDT [facility] Method of Collection:: Voided Name Value Range Interpretation Code Description Data Janki rce(s) Supporting Document(s) Color of Urine [facility] Appearance of Urine CLEAR [facility] pH of Urine by Test strip 5.5 5-8 [facility] Specific gravity of Urine by Refractometry 1.019 1.005-1.030 [facility] Leukocyte esterase [Presence] in Urine by Test strip NEGAT EMILY [facility] Nitrite [Presence] in Urine by Test strip NEGATIVE [facility] Protein [Presence] in Urine by Test strip NEGATIVE [facility] Glucose [Mass/volume] in Urine by Automated test strip NEGATIVE NEG ATIVE [facility] Ketones [Presence] in Urine by Test strip NEGATIVE [facility] Urobilinogen [Presence] in Urine 0.2-1 EU/dl [facility] Bilirubin.total [Presence] in Urine by Automated test strip NEGATIVE [facility] Erythrocytes [#/volume] in Urine by Test strip NEGATIVE NEGATIVE [facility] URINE MICROSCOPIC ADDED NO [facility] ID Date Data Source [id number] 12/24/2020 09:25:00 AM EDT [facility] [address] [place] [address] [phone] NAME SEX PT STATUS ACCOUNT NUMBER KIRSTIN MAC REG REF [id number] ORDERING PHYSICIAN LOCATION MEDICAL RECORD NO. Gonzalez Maradiaga MD CT [id number] ATTENDING PHYSICIAN DATE OF DATE OF EXAM/TIME Gonzalez Maradiaga MD 1955 12/24/20910 TYPE / EXAM CT Head without contrast REASON FOR EXAM Left sided hemicrania EXAM DESCRIPTION: CT head without contrast CLINICAL HISTORY: A 65-year-old male with Left sided hemicrania COMPARISON: None. TECHNIQUE: Axial CT images of the brain from skull base to vertex without contrast. Sagittal and coronal reconstructed images were generated. This CT scan was performed with one or more of the following dose optimization techniques: iterative reconstruction, automatic exposure control, and/ormanual adjustment of mAs and kVp according to the patient's size. CT Scan Dose (mGycm): 583.9 FINDINGS: No acute hemorrhage, edema, mass effect, midline shift, hydrocephalus, extra-axial fluid collectionor vascular territory infarct. Brain morphology is symmetric. Gleason- white junction is preserved. Cranium is intact. Pituitary gland is normal in size and configuration. Pineal gland is calcified. Visible paranasal sinuses and mastoid air cells are well pneumatized. Globes are intact with no proptosis, retrobulbar mass or retrobulbar hematoma. Atlantodental interval is preserved. IMPRESSION: 1. No acute intracranial pathology. END IMPRESSION Reported By Irma Colindres DO on 12/24/20924 Signed By Irma Colindres DO on 12/24/20929 Date Time CC: Irma Colindres DO; Gonzalez Maradiaga MD Techn: TALHA Trans Dt/Tm: Trans by: DT Prt Dt/Tm: : Total DLP = 584.00 mGy-cm : Total Radiation Dose = 1.8104 mSv Lifetime Dose: 12.8293 mSv Name Value Range Interpretation Code Description Data Janki rce(s) Supporting Document(s) ID Date Data Source [id number] 12/24/2020 09:43:00 AM EDT [facility] Initial, repeat or follow-up test?: FOLL OW-UP Initial, repeat or follow-up test?: FOLL OW-UP Initial, repeat or follow-up test?: FOLL OW-UP Name Value Range Interpretation Code Description Data Janki rce(s) Supporting Document(s) Leukocytes [#/volume] in Blood by Automated count 6.8 10*3/uL 4.45-10 .71 N [facility] Erythrocytes [#/volume] in Blood by Automated count 4.80 10*6/uL 4.3- 6.1 [facility] Hemoglobin [Moles/volume] in Blood 14.7 g/dL 13-18 N [facility] Hematocrit [Volume Fraction] of Blood by Automated count 43.7 % 4 2-52 N [facility] Erythrocyte mean corpuscular volume [Ent itic volume] in Cord blood by Automated count 91 fL 80-96 N [facility] ital Erythrocyte mean corpuscular hemoglobin [Entitic mass] by Au tomated count 31 pg 27-31 N [facility] Erythrocyte mean corpuscular hemoglobin concentration [Mass/volume] in Cord blood 34 g/dL 33-37 N [facility] ital Erythrocyte distribution width [Entitic volume] by Automated count 13 % 11-15 N [facility] Platelets [#/volume] in Blood by Automated count 200 10*3/uL 130-472 N [facility] Platelet mean volume [Entitic volume] in Blood 9.4 fL 9.1-13.1 N [facility] Neutrophils/100 leukocytes in Blood by Automated count 61.3 % 41- 77 N [facility] Neutrophils [#/volume] in Blood by Automated count 4.2 U 1.7-7.6 N [facility] Lymphocytes/100 leukocytes in Blood by Automated count 27.4 % 14- 46 N [facility] Lymphocytes [#/volume] in Blood by Automated count 1.9 U 0.6-4.6 N [facility] Monocytes/100 leukocytes in Blood by Automated count 7.9 % 4-12 N [facility] Monocytes [#/volume] in Blood by Automated count 0.5 U 0.2-1.2 N [facility] Eosinophils/100 leukocytes in Blood by Automated count 2.1 % 0-7 N [facility] Eosinophils [#/volume] in Blood by Automated count 0.1 U 0.0-0.5 N [facility] Basophils/100 leukocytes in Blood by Automated count 0.6 % 0.4-1 .3 N [facility] Basophils [#/volume] in Blood by Automated count 0.0 U 0.0-0.2 N [facility] NUCLEATED RED BLOOD CELL 0 % [facility] NUCLEATED RED BLOOD CELL# 0 U [facility] Immature granulocytes [Presence] in Blood by Automated count 0-2 N [facility] Immature granulocytes [#/volume] in Blood by Automated count 0.1 U 0-0.1 N [facility] Manual Differential panel - Blood NO [facility] ID Date Data Source [id number] 12/24/2020 10:47:00 AM EDT [facility] Initial, repeat or follow-up test?: FOLL OW-UP Initial, repeat or follow-up test?: FOLL OW-UP Initial, repeat or follow-up test?: FOLL OW-UP Name Value Range Interpretation Code Description Data Janki rce(s) Supporting Document(s) Urea nitrogen [Mass/volume] in Serum or Plasma 15 mg/dL 9-23 N [facility] Sodium [Moles/volume] in Serum or Plasma 142 mmol/L 132-146 N [facility] Potassium [Moles/volume] in Serum or Plasma 4.3 mmol/L 3.5-5.5 [facility] Chloride [Moles/volume] in Serum or Plasma 111 mmol/L 99-109 Above high normal [facility] Carbon dioxide, total [Moles/volume] in Serum or Plasma 29 mmol/L 20 -31 N [facility] Anion gap in Serum or Plasma 6 mmol/L 8-16 Below low normal [facility] Glucose [Mass/volume] in Serum or Plasma 102 mg/dL 74-106 N [facility] Creatinine 0.9 mg/dL 0.5-1.1 [facility] Glomerular filtration rate/1.73 sq M.pre dicted [Volume Rate/Area] in Serum or Plasma Greater Than 60 ABOVE 60 [facility] Alanine aminotransferase [Enzymatic acti vity/volume] in Serum or Plasma by With P-5'-P 36 U/L 10-49 N [facility] ital Aspartate aminotransferase [Enzymatic ac tivity/volume] in Serum or Plasma by With P-5'-P 15 U/L 0-33 N [facility] pital Alkaline phosphatase [Enzymatic activity/volume] in Serum or Plasma 67 U/L 45-129 [facility] Calcium [Mass/volume] in Serum or Plasma 8.6 mg/dL 8.5-10.1 [facility] Bilirubin.total [Mass/volume] in Serum or Plasma 0.3 mg/dL 0.3-1.2 [facility] Albumin [Mass/volume] in Serum or Plasma by Bromocresol purple (BCP) dye binding method 3.4 g/dL 3.2-4.8 [facility] ital Protein [Mass/volume] in Serum or Plasma 6.6 g/dL 5.7-8.2 [facility] ID Date Data Source [id number] 12/24/2020 10:47:00 AM EDT [facility] Initial, repeat or follow-up test?: FOLL OW-UP Initial, repeat or follow-up test?: FOLL OW-UP Initial, repeat or follow-up test?: FOLL OW-UP Name Value Range Interpretation Code Description Data Janki rce(s) Supporting Document(s) Triglycerides 93 mg/dL 0-150 [facility] Cholesterol 191 mg/dL 120-200 [facility] HDL Cholesterol 50 mg/dL [facility] HDL Less than 40 mg/dL: Major risk for CHDHDL Greater than 59 mg/dL: Low risk for CHD LDL Cholesterol, Calc 123 mg/dL 0-100 Above high normal [facility] ID Date Data Source [id number] 12/24/2020 10:47:00 AM EDT [facility] Initial, repeat or follow-up test?: FOLL OW-UP Initial, repeat or follow-up test?: FOLL OW-UP Initial, repeat or follow-up test?: FOLL OW-UP Name Value Range Interpretation Code Description Data Janki rce(s) Supporting Document(s) Prostate specific Ag [Mass/volume] in Serum or Plasma 5.52 ng/mL 0.0-4.0 Above high normal [facility] ID Date Data Source [id number] 12/21/2020 12:22:00 PM EDT [facility] [address] [place] [address] [phone] NAME SEX PT STATUS ACCOUNT NUMBER KIRSTIN MAC REG REF [id number] ORDERING PHYSICIAN LOCATION MEDICAL RECORD NO. Gonzalez Maradiaga MD [facility] [id number] ATTENDING PHYSICIAN DATE OF DATE OF EXAM/TIME Gonzalez Maradiaga MD 1955 12/21/201034 TYPE / EXAM Xray Foot AP/LAT RT REASON FOR EXAM Right foot pain CLINICAL HISTORY: 65-year-old male with Right foot pain TECHNIQUE: AP and lateral radiographs of the right foot. COMPARISON: None available. FINDINGS: No acute fracture or dislocation. Anatomic alignment is preserved. There is moderate to severe joint space narrowing of the first metatarsophalangeal joint with large osteophytes and surrounding soft tissue edema, consistent with osteoarthritis. Joint spaces of the foot are otherwise preserved.No osseous erosions. Soft tissues are free of subcutaneous gas. No visible retained radiopaque foreign body. IMPRESSION: 1. No radiographic evidence of acute fracture or dislocation. 2. Moderate to severe degenerative change of the first metatarsophalangeal joint favored with associated soft tissue edema, favored to be osteoarthritis. However, cannot exclude early tophus formation. Clinical correlation recommended. END IMPRESSION Reported By Irma Colindres DO on 12/21/20 1222 Signed By Irma Colindres DO on 12/21/20 1229 Date Time CC: Irma Colindres DO; Gonzalez Maradiaga MD Techn: CUMME Trans Dt/Tm: Trans by: DT Prt Dt/Tm: 0830- 0018: Total DLP = 0.00 mGy-cm Fluoroscopy Time (in secs): Name Value Range Interpretation Code Description Data Janki rce(s) Supporting Document(s) ID Date Data Source [id number] 12/21/2020 09:07:00 AM EDT [facility] Patient Name: KIRSTIN MAC : 1955 Sex: M Pt Unit #: [id number] Location:[facility] Provider: Visit Date/Time: 12/21/20 Primary Insurance: P Secondary Insurance: Self Pay Intake Vital Signs 12/21/20 09:09 Current Height 5 ft 9.5 in Current Weight 216 lb Weight Measurement Method Standing Scale BMI 31.4 BP 138/78 Blood Pressure Location Lt brachial Position Sitting Pulse 65 Pulse Strength Normal Pulse Source Pulse Oximeter Pulse Oximetry (%) 94 Oxygen Delivery Method room air Intake Visit Reasons: Encounter to Establish Care Nurse Note: New Patient-Pt has migraines when drinking alcohol off/on x3 years. Stock Replenisher Required: No Accompanied by: Self / Same as Patient Is patient in pain?: No Allergies No Known Drug Allergies Allergy (Verified 12/21/20 09:39) No Known Food Allergies Allergy (Verified 12/21/20 09:39) environmental Allergy (Severe, Uncoded 02/19/20 06:54) sneezing, coughing, runny eyes Medications - Last Reconciled 12/21/20 by Gonzalez Maradiaga M.D. fexofenadine (Yanira Allergy) 180 mg PO Q24H fluticasone propionate 50 mcg/actuation 50 mcg intranasal DAILY Vision Wearing glasses?: No Fall Risk History of falls: No Ambulatory Aid:: None Gait/Transferring:: Normal Medications:: No High Risk Medications HIV Testing Offer - ages 13-64 HIV testing Offer: No Requirement for HIV testing offer been met?: Patient reports past refusal Hep C Testing Offered: No Hep C Requirement met: Patient reports past refusal Do you need a note to return Do you need a note to return to daycare/school/sports/work: No Coronavirus Screening Screening Are you currently positive or on isolation for COVID ?: No Do you have any NEW signs of one or more of the following?: no symptoms Do you have NEW signs of at least two of the following?: headache HPI Additional HPI HPI Details: Patient has been to this office for employment related physical. He presented today to establish. He complained of a hemicranial headache that is aggravated by alcohol. His other complaints were r ight big toe pain. He has had surgery on his left foot for a similar problem. He also has low back pain. He has a deviated nasal septum. He describes symptoms of BPH including urinary frequency, nocturia and dribbling. He describes an instance of flying in an airplane about 4 years ago to the [facility]. Something strange happened to him during the flight and he had ear discomfort. He did see a clinician for this. His left ear has never been the same since then. His headaches are on the left side. He feels dizzy in the mornings. He has been to see the physical therapist that runs the balance program. He believes his balance difficulties may have some correlation with his hayfever. Lately he has also noticed some dimming of his vision that he blames on developing cataracts. [facility] Medical History Abnormal PSA Chronic sinusitis Headache High serum low density lipoprotein (LDL) cholesterol Smoker unmotivated to quit Surgical History History of - surgery History of - surgery Family History Father Colon cancer Diabetes Mother Cancer Stroke Brother Unexpected sudden of Brother No problems noted. Sister No problems noted. Sister No problems noted. Sister No problems noted. Sister No problems noted. Son No problems noted. Daughter No problems noted. Social History Does the Patient have a Healthcare Proxy: No (DECLINES) Does Patient have a DNR?: No Does Patient have a Living Will?: No household members: spouse housing: house marital status: highest education level completed: GED or equivalent service: No current occupational status: retired current occupation: Retired local combination truck driver leisure activities: other Hx Recent Travel (where): No well-balanced diet: daily caffeine: Yes high- fat food intake: 3 or more times/day daily servings fruits/ve-4 daily servings of milk/calcium: 0-1 eating out: other (not often) reads food labels: seldom or never during the past year weight has: remained stable Smoking Status: Current every day smoker tobacco type: cigarettes how long ago did patient quit smoking: pt is quitting again before operation. quit status: has quit before substance use type: marijuana seatbelt use: always helmet use: Yes water heater temp set < 120 deg: Yes working smoke detector in home: Yes fire extinguisher in home: No carbon monox detector in home: Yes firearms in home: Yes victim of physical abuse: No victim of emotional abuse: No victim of sexual abuse: No Review of Systems Const Denies excessive sweating, Denies fatigue and Reports headache(s) Eyes Reports blurry vision, Reports change in vision, Denies dry eyes, Denies irritation and Denies itchyeyes ENT Denies dysphagia, Reports dizziness, Reports otalgia (left sided), Reports headache(s), Denies lip swelling, Denies throat swelling and Reports other (h/o DNS) Card Denies chest pain, Denies pedal edema, Denies lightheadedness, Denies palpitations and Denies dyspnea Resp Denies cough, Denies excessive phlegm production, Denies pain on inspiration, Denies dyspnea and Denies wheezing GI Denies abdominal pain, Denies change in bowel habits, Denies dysphagia, Denies early satiety, Deniesheartburn, Denies diarrhea, Denies nausea and Denies vomiting Denies difficulty urinating, Denies flank pain, Reports nocturia, Reports urinary hesitancy and Reports urinary urgency Musc Reports back pain (from overexertion) and Reports other (right foot pain) Skin/Breast Denies change in pigmentation, Denies lesions, Denies nail changes, Denies rash and Denies unusual bruising Neuro Reports dizziness, Reports headache(s) and Denies memory loss Psych Denies abnormal sleep pattern, Denies anxiety, Denies change in appetite, Denies depression, Denies irritability and Denies memory loss Endo Denies cold intolerance, Denies excessive sweating, Denies fatigue, Denies polyphagia, Denies polydipsia, Denies polyuria and Denies palpitations Harry/Lymph Denies easy bleeding, Denies easy bruising and Denies lymphadenopathy Aller/Immun Denies urticaria, Denies itchy eyes, Denies lip swelling, Denies seasonal rhinorrhea, Denies throat swelling and Denies wheezing Exam Const General: cooperative, healthy appearing, no acute distress, well developed and well groomed Orientation: alert and awake [facility] Head: normal to inspection, normocephalic and atraumatic Ears: external ears normal, TM's normal bilaterally, EAC's normal and no periauricular adenopathy Eyes General: appearance normal, both eyes and all related structures Periorbital: periorbital findings normal Eyelids: eyelids normal Conjunctivae: conjunctivae normal Sclera: sclerae normal Pupils: PERRL EOM: EOM intact bilaterally Direct ophthalmoscopy: normal light reflex Neck Neck: normal visual inspection, no lymphadenopathy, supple and no JVD present Neck mass: No Thyroid: thyroid normal Carotids: normal carotid upstroke Resp Effort Inspection: normal respiratory effort Auscultation: clear to auscultation bilaterally Percussion: percussion normal Cardio Jugular venous pressure: no JVD Rate: regular rate Rhythm: regular rhythm Heart Sounds: S1 normal and S2 normal Pulses: normal peripheral pulses GI Inspection: Yes normal to inspection Palpation: soft and nontender Percussion: normal to percussion Auscultation: normal bowel sounds Musc Cervical Spine: normal cervical lordosis Thoracic/Lumbar Spine: thoracic and lumbar spine normal to inspection and straight leg raise negative bilaterally Skin Lesions: no lesions Rashes: no rashes Hair: normal Nails: normal Neuro General: patient alert, patient awake, gait normal, moves all extremities and normal light touch, pain and propioception Cognition: normal cognition Speech: speech normal Gait: normal gait Motor: muscle tone normal throughout and strength 5/5 throughout Sensory Exam: no sensory deficits noted Extrem General: normal to inspection, capillary refill normal, no clubbing, cyanosis or edema and no muscleatrophy Psych Appearance: grossly normal and well kempt Mental Status: mental status grossly normal Speech and Movement: speech and movement normal Assessment Plan Assessment Plan (1) Encounter to establish care with new doctor: Code(s): Z76.89 - Persons encountering health services in other specified circumstances Plan: Initial office visit today. A comprehensive personal history was obtained from the patient and recorded on the chart. A comprehensive review of systems was performed followed by a comprehensive physical examination. The relevant findings are recorded on the chart. (2) Headache: Status: Acute Comment: From alcohol Code(s): R51.9 - Headache, unspecified SNOMED Code(s): 84075065 Category: Medical Plan: Even though the patient is not at the right age group, his description is suggestive of cluster headaches. This is more so given the correlation with alcohol. Beta-gloria prophylaxis will be considered after completion of investigations. (3) Smoker unmotivated to quit: Status: Acute Comment: 15/day Code(s): F17.200 - Nicotine dependence, unspecified, uncomplicated SNOMED Code(s): 87191762 Category: Social Hx Plan: I counseled the patient on the dangers of tobacco use for at least 3 minutes. The patient was advised to quit tobacco use altogether. I reviewed the various strategies to maximize success with the patient. These include removing cigarettes and smoking materials from the environment. I also reviewed stress management and support of family/friends. I advised the patient of the various health risks of smoking as well as its financial impact. (4) Right foot pain: Code(s): M79.671 - Pain in right foot Plan: Imaging study was requested. At the time of dictation, I have the results available to me. It has been shared with the patient. (5) High serum low density lipoprotein (LDL) cholesterol: Status: Acute Code(s): R79.89 - Other specified abnormal findings of blood chemistry SNOMED Code(s): 962975988 Category: Medical Plan: Patient has a history of high LDL. Repeat lipid panel has been requested. (6) Abnormal PSA: Status: Acute Code(s): R97.20 - Elevated prostate specific antigen [PSA] SNOMED Code(s): 629466515 Category: Medical Plan: Patient also has a history of an elevated PSA. A repeat PSA value has been requ ested. I will refer him to the urologist for expert evaluation. Plan: Initial office visit for this patient with above-described problems. I will call him with the results of the tests that have been requested. Further management strategy will be based upon the test results. Orders: Orders Xray Foot AP/LAT RT 12/21/20 M79.671 - Pain in right foot CMP 1 Week R7.89 - Other specified abnormal findings of blood chemistry LIPID PANEL 1 Week R79.89 - Other specified abnormal findings of blood chemistry CBC W AUTO DIFF 1 Week R79.89 - Other specified abnormal findings of blood chemistry URINALYSIS 1 Week R79.89 - Other specified abnormal findings of blood chemistry PSA Diagnostic 1 Week R97.20 - Elevated prostate specific antigen [PSA] CT Head without contrast 2 Weeks R51.9 - Headache, unspecified Additional Comments Additional Comments: This document was dictated using Fast FiBR speech recognition software. A reasonable attempt to proofread has been made to minimize errors. Please call if you notice any errors or have any questions. Orders Instructions: Cluster Headache (AC) Coding Level of Care Code 23822 New Pt Extended Comp Coding comments Coding Comments Additional info for the ice cutter: Initial visit for this patient with multiple problems and multiple complaints Exam Comprehensive Diagnoses Encounter to establish care with new doctor Z76.89 Smoker unmotivated to quit F17.200 Headache R51.9 Right foot pain M79.671 High serum low density lipoprotein (LDL) cholesterol R79.89 Abnormal PSA R97.20 Additional Codes Intake - Is patient in pain?: No (1126F) <Electronically signed by Gonzalez Maradiaga MD> 12/24/20 0731 Name Value Range Interpretation Code Description Data Janki rce(s) Supporting Document(s) ID Date Data Source [id number] 10/28/2020 09:02:00 AM EDT [facility] [address] [place] [address] [phone] NAME SEX PT STATUS ACCOUNT NUMBER KIRSTIN MAC REG REF [id number] ORDERING PHYSICIAN LOCATION MEDICAL RECORD NO. Kevin Matuhr M.D. CT [id number] ATTENDING PHYSICIAN DATE OF DATE OF EXAM/TIME Tiffany Jung NP 1955 10/27/20958 TYPE / EXAM CT Low Dose Lung Ca Screening REASON FOR EXAM NICOTINE DEPENDENCE CLINICAL HISTORY: 64-year-old male with NICOTINE DEPENDENCE COMPARISON: 11/06/2019 CT chest without contrast. TECHNIQUE: Low-dose CT scan of the chest is performed without the use of intravenous contrast for cancer screening in this tobacco user. FINDINGS: Lung parenchyma, pleura and airways: Airways are patent. No pneumothorax, focal infiltrate or pleural effusion. No new pulmonary nodule. Previously demonstrated pulmonary nodules are all unchanged and as follows: 1. Left upper lobe unchanged 0.4 cm pulmonary nodule (axial image 202/522). 2. Right upper lobe 0.2 cm calcified granuloma (axial image 215/522). 3. Pleural-based left lower lobe nodule 0.8 cm (axial image 292/522). 4. Right lower lobe nodule 0.5 cm (axial image 302/522). 5. Pleural-based nodule along the fissure in the left lower lobe 0.5 cm (axial image 310/22). Mediastinum: No hilar or mediastinal lymphadenopathy. Thyroid gland is homogenous in attenuation. Aortic arch is mildly calcified but normal in caliber throughout the chest. No aneurysm. Cardiac Silhouette: Heart is normal in size and contains aeration. No pericardial effusion. Bones: Intact. No lytic or blastic lesion. ABDOMEN: Visible abdomen demonstrates homogeneous and normal sized liver and spleen. Pancreas is normal in size and configuration. There is mild thickening of the left adrenal gland but no distinctnodule. The right adrenal gland is normal in size and configuration. Visible kidneys demonstrate no evidence of stone, mass or hydronephrosis. Visible small and large bowel are normal in caliber with no bowel wall thickening or dilation. IMPRESSION: 1. No acute pathology in the chest. 2. Unchanged pulmonary nodules.. OVERALL FINAL ASSESSMENT OF FINDINGS Lung rads category 2 Dose reduction was performed utilizing CARE dose with automated adjustment of the kV and MAS according to patient size, iterative reconstruction, automated exposure control, as well as adaptivedose shielding. END IMPRESSION Reported By Irma Colindres DO on 10/28/20901 Signed By Irma Colindres DO on 10/28/20916 Date Time CC: Tiffany Colindres DO Techn: EBEBR Trans Dt/Tm: Trans by: DT Prt Dt/Tm: : Total DLP = 108.00 mGy-cm : Total Radiation Dose = 1.4040 mSv Lifetime Dose: 11.0189 mSv Name Value Range Interpretation Code Description Data Janki rce(s) Supporting Document(s) ID Date Data Source [id number] 09/15/2020 05:50:00 AM EDT [facility] Therapy Department KIRSTIN MAC : 1955 Date: 09/15/20 [id number] Attending: Tiffany Jung PT Outpatient Evaluation - Evaluation/Subjective Diagnosis:: Vertigo Impairments: Impaired ambulation, Impaired balance Other impairments:: Dizziness - Subjective Subjective: This evaluation was completed on: September 08, 2020. The patient presents to PT with complaints of: vertigo and imbalance which just developed this month. He is having some allergy symptoms and has fullness in his head. He reports having a spinning sensation when he first gets outof bed. Duration of vertiginous symptoms is: a few seconds. Description of dizziness: spinning andimbalance, some increased neck stiffness and soreness. Neurological symptoms? None. Symptoms worsen with: getting up out of bed; laying on his back, turning quickly. Symptoms improve with: staying still. The patient's medical history includes: migraines, and chronic sinus infections. Smoker? yes. Alcohol intake? yes, small amount daily. Employment: retired. Home Environment: pt resides with his . Assistive device: none used. Falls: none. Car s ickness: no. Avoidance Behaviors: fast movements - Objective Objective: C- spine Clear? yes. - Modified VA testing: negative. - Sharp-Kely Testing: negative. AROM: decreased neck motion; UEs and LEs WNLs. Strength: WNLs. Sensation: to pin prick WNLs. Coordination: UEs WNLs. LEs WNLs. Special tests: Romberg: negative. Sharpened Romberg: positive. Positional testing: Mikey-Hallpike test: positive on the L for upbeating, L torsional nystagmus witha 10 second delay and lasting for 5 seconds in duration. Roll test: negative R and L Assessment: Medical diagnosis: vertigo. PT diagnosis: PPP 5A: primary prevention/risk reduction forloss of balance and falling. Impairments: dysequilibrium, vertigo, motion sensitivity, L posterior canalithiasis BPPV. Functional limitations: decreased tolerance to position changes Plan: The patient will be seen for neuromuscular facilitation for canal repositioning and vestibular rehabilitation. Manual therapy for neck ROM and trigger point release treatment will be completed asneeded. Interventions: Neuromuscular fasciliation, Patient education - Plan of Care Short Term Goal #1: In 1-6 visits: pt will be cleared of BPPV, to allow him to complete position changes without vertiginous symptoms and to restore his balance to baseline. Short Term Goal #2: In 1-6 visits: the patient will display no dizziness, to alleviate pressure in his head and the "fogginess" to allow him to resume all normal daily tasks, at his regular pace. Short Term Goal #3: NA terminologist goal #1: NA Chain Link Fence Installer Goal #2: NA assisted goal #3: NA Frequency: 2x/week Rehab Potential: Good Visits Requested: 6 Expiration date of orders:: 11/05/20 Therapist Tali Miguel 09/15/20 0550 I certify this plan of care Cosigner Date Time LAST EDIT: Name Value Range Interpretation Code Description Data Janki rce(s) Supporting Document(s) ID Date Data Source [id number] 06/23/2020 05:23:00 PM [facility] Initial, repeat or follow-up test?: INIT IAL Name Value Range Interpretation Code Description Data Janki rce(s) Supporting Document(s) Prostate specific Ag [Mass/volume] in Serum or Plasma 4.92 ng/mL 0.0-4.0 Above high normal [facility] ID Date Data Source [id number] 04/16/2020 08:20:00 AM [facility] Patient Name: KIRSTIN MAC : 1955 Sex: M Pt Unit #: [id number] Location:[facility] Provider: Visit Date/Time: 04/16/20 Primary Insurance: MVP Secondary Insurance: Self Pay Intake Vital Signs 04/16/20 08:34 Current Height 5 ft 9.5 in Current Weight 224 lb Weight Measurement Method Standing Scale BMI 32.5 BP 150/84 Blood Pressure Location Lt brachial Position Sitting Pulse 82 Pulse Strength Normal Pulse Source Pulse Oximeter Pulse Oximetry (%) 97 Oxygen Delivery Method room air Intake Visit Reasons: DOT physical Nurse Note: Pt's here for a DOT physical. No active complaints at this time. Stock Replenisher Required: No Accompanied by: Self / Same as Patient Is patient in pain?: No Allergies No Known Allergies Allergy (Verified 02/19/20 06:54) environmental Allergy (Severe, Uncoded 02/19/20 06:54) sneezing, coughing, runny eyes Medications - Last Reconciled 04/16/20 by Gonzalez Maradiaga M.D. fluticasone propionate 50 mcg/actuation 50 mcg intranasal DAILY Vision Wearing glasses?: No Fall Risk History of falls: No Ambulatory Aid:: None Gait/Transferring:: Normal Medications:: No High Risk Medications HIV Testing Offer - ages 13-64 HIV testing Offer: No Requirement for HIV testing offer been met?: Patient reports past refusal Hep C Testing Offered: No Hep C Requirement met: Patient reports past refusal Do you need a note to return Do you need a note to return to daycare/school/sports/work: No [facility] Medical History Chronic sinusitis Surgical History History of - surgery History of - surgery Family History Father Colon cancer Mother No problems noted. Social History Does the Patient have a Healthcare Proxy: No (DECLINES) Does Patient have a DNR?: No Does Patient have a Living Will?: No Hx Recent Travel (where): No well-balanced diet: daily caffeine: Yes high-fat food intake: 3 or more times/day daily servings fruits/ve-4 daily servings of milk/calcium: 0-1 eating out: other (not often) reads food labels: seldom or never during the past year weight has: remained stable Smoking Status: Current every day smoker tobacco type: cigarettes how long ago did patient quit smoking: pt is quitting again before operation. quit status: has quit before Assessment Plan Assessment Plan (1) Encounter for commercial driving license (CDL) exam: Code(s): Z02.4 - Encounter for examination for driving license Plan - Gonzalez Maradiaga M.D.: See DOT paper form filled out. 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.4 <Electronically signed by Gonzalez Maradiaga MD> 04/16/20 0923 Name Value Range Interpretation Code Description Data Janki rce(s) Supporting Document(s) ID Date Data Source [id number] 02/19/2020 08:00:00 AM EDT [facility] Name: KIRSTIN MAC : 1955 Age: 64 MR#: [id number] Admit Date: 02/19/20 Provider: Basil Agee MD Room #: Consulting Provider: Dictation Date: 02/19/20 Operative Note Operative Report Date of Service Date of service:: 02/19/20 Operative Report Surgeon: Other (Basil Agee MD) Anesthesiologist(s): Naya Ashby CRNA Anesthesia Type: MAC Pre-Operative Diagnosis: Family history of colon CA (father) Post-Operative Diagnosis: same as pre-op plus Findings: small rectal polyp Procedure Procedure: colonoscopy+cold biopsy forceps polypectomy Findings: small rectal polyp Complications: No Post- Operative Condition: Good Operative Treatments Specimens: Specimens removed: Post Op Orders Post Op Order:: From OR to PACU to ASU when criteria met Operative Narrative Narrative: Indication: 64y/o M referred for colonoscopy because of family history. I consented him for colonoscopy after explaining risks in the office. Description: The patient was brought to the OR and placed in the left lateral decubitus position. He was sedated by anesthesia and a time-out was done. A rectal exam done showed normal sphincter tone. The scope was then advanced from the anus to the sigmoid colon. I then advanced to the transverse colon, ascending colon, and to the cecum. I saw the ileocecal valve and appendiceal orifice. The colonoscope was withdrawn making sure to examine all of the colonic mucosa. There was a little bit of a stool film on some of the mucosa which I washed off. In the rectum, I saw a 2mm flat polyp which was biopsied with a forcep. I then did a retroflexion, which was essentially normal. After this, the scope was withdrawn and the patient was awoken. He was then sent to the recovery room in stable condition. He will need a colonoscopy in 5 years. The office will call with pathology results. Dictated by: <Electronically signed by BASIL AGEE MD> BASIL AGEE MD 02/19/20 08 BASIL AGEE MD SIGNATURE DA Report Cosigners: D: KRISTEN 02/19/20799 T: KRISTEN 02/19/20799 CC: Name Value Range Interpretation Code Description Data Janki rce(s) Supporting Document(s) ID Date Data Source [id number] 02/25/2020 07:15:00 AM EST [facility] PATH SPEC #:: [id number] Name Value Range Interpretation Code Description Data Janki rce(s) Supporting Document(s) Pathology studies (set) See scanned report [facility] ID Date Data Source [id number] 02/15/2020 12:00:00 AM EDT [facility] Name Value Range Interpretation Code Description Data Janki rce(s) Supporting Document(s) 2019-nCoV RNA XXX MARLENA+probe-Imp [facility] This lab was ordered by [facility] and reported by [email or web address] ID Date Data Source [id number] 02/11/2020 08:06:00 AM EDT [facility] Name: KIRSTIN MAC : 1955 Age: 64 MR#: [id number] Admit Date: 02/11/20 Provider: Basil Agee MD Room #: Consulting Provider: Dictation Date: 02/11/20 Intake Vital Signs 02/11/20 08:07 Current Height 5 ft 9 in Current Weight 219 lb Weight Measurement Method Standing Scale BMI 32.3 BP 148/88 Blood Pressure Location Lt brachial Position Sitting Pulse 84 Pulse Strength Normal Pulse Source Pulse Oximeter Temp 97.6 F Temp Source Oral Pulse Oximetry (%) 98 Oxygen Delivery Method room air Intake Visit Reasons: Screening Colonoscopy Nurse Note: pt states father had colon cancer Stock Replenisher Required: No Is patient in pain?: No Allergies No Known Allergies Allergy (Verified 06/03/14 09:47) environmental Allergy (Severe, Uncoded 12/02/19 08:38) sneezing, coughing, runny eyes HIV Testing Offer - ages 13-64 Requirement for HIV testing offer been met?: Declines today. Pretest education received and acknowledged Coronavirus Screening Screening Have you traveled outside of [facility] or [facility] in the last 14 days.: No Has patient experienced coronavirus symptoms: No [facility] Medical History Chronic sinusitis Surgical History History of - surgery History of - surgery Family History Father Colon cancer Mother No problems noted. Social History Does the Patient have a Healthcare Proxy: No (DECLINES) Does Patient have a DNR?: No Does Patient have a Living Will?: No well-balanced diet: daily caffeine: Yes high-fat food intake: 3 or more times/day daily servings fruits/ve-4 daily servings of milk/calcium: 0-1 eating out: other (not often) reads food labels: seldom or never during the past year weight has: remained stable Smoking Status: Former smoker how long ago did patient quit smoking: pt is quitting again before operation. quit status: has quit before HPI Additional HPI HPI Details: This is a 64-year-old male with a history of occasional elevated blood pressure that comes in for a screening colonoscopy. His father had colon cancer in his 70s, and he himself had a normalcolonoscopy 5 years ago. He denies any complaints at this time. he drinks 4-5 times a week, is a smoker, had CTS, and LIHR. Review of Systems Const All systems reviewed are unremarkable except as noted in HPI and below Reports headache(s) Eyes Reports system reviewed and no additional complaints, except as documented and Reports requires corrective lenses ENT Reports system reviewed and no additional complaints, except as documented, Reports headache(s) and Reports tinnitus Card Reports system reviewed and no additional complaints, except as documented Resp Reports system reviewed and no additional complaints, except as documented and Reports wheezing GI Reports system reviewed and no additional complaints, except as documented Musc Reports system reviewed and no additional complaints, except as documented and Reports back pain Skin/Breast Reports system reviewed and no additional complaints, except as documented and Reports dry skin Neuro Reports system reviewed and no additional complaints, except as documented and Reports headache(s) Psych Reports system reviewed and no additional complaints, except as documented Endo Reports system reviewed and no additional complaints, except as documented Harry/Lymph Reports system reviewed and no additional complaints, except as documented Aller/Immun Reports system reviewed and no additional complaints, except as documented and Reports wheezing Exam Const General: cooperative and healthy appearing HENMT Ears: external ear abnormal (Mild right inferior ear swelling) Eyes General: appearance normal, both eyes and all related structures Eyelids: eyelids normal Sclera: sclerae normal Cornea: corneas normal Neck Neck: normal visual inspection and full ROM Neck mass: No Chest Chest: normal inspection of the chest and normal palpation of entire chest wall Resp Effort Inspection: normal respiratory effort Auscultation: clear to auscultation bilaterally Cardio Rate: regular rate Rhythm: regular rhythm Heart Sounds: S1 normal and S2 normal GI Inspection: Yes normal to inspection, No abdominal distension and Yes incision (left groin) Palpation: soft and nontender Musc Cervical Spine: cervical ROM normal Thoracic/Lumbar Spine: thoracic and lumbar spine normal to inspection Skin Lesions: no lesions Rashes: no rashes Neuro General: patient alert and patient oriented x3 Cranial Nerves: CN's II-XII intact bilaterally Cognition: normal cognition Speech: speech normal Motor: muscle tone normal throughout Extrem General: normal to inspection and full ROM Psych Appearance: grossly normal and well kempt Mental Status: mental status grossly normal Speech and Movement: speech and movement normal Affect: normal affect Attitude: cooperative Thought Process: normal Thought Content: normal Insight: insight good Judgment: judgment good Assessment Plan Assessment Plan (1) Encounter for screening colonoscopy: Code(s): Z12.11 - Encounter for screening for malignant neoplasm of colon Plan - BASIL AGEE MD: A- patient here for screening colonoscopy, family history of colon cancer P-bowel prep with MiraLAX and Dulcolax -Colonoscopy, possible biopsy Dictated by: <Neymar ectronically signed by BASIL AGEE MD> BASIL AGEE MD 02/11/20 0829 BASIL AGEE MD SIGNATURE DA Report Cosigners: D: KRISTEN 02/11/20805 T: ANISH 02/11/20805 CC: Name Value Range Interpretation Code Description Data Janki rce(s) Supporting Document(s) ID Date Data Source [id number] 02/06/2020 12:59:00 PM EDT [facility] Patient Name: KIRSTIN MAC : 1955 Sex: M Pt Unit #: [id number] Location:[facility] Provider: Visit Date/Time: 02/06/20 Primary Insurance: P Secondary Insurance: Self Pay Documented by User: Trinidad Rader 02/06/20 13:02 Intake Nurse Note Intake Visit Reasons: Flu shot Nurse Note: Patient was given flu vaccine for preventive purposes. Accompanied by: Self / Same as Patient Immunizations Afluria Qd 2019-(3yr up)(PF) Performing Provider: Tiffany Jung NP Administered by: Trinidad Rader on 02/06/20 12:59 Dose Route Admin Location Lot Number Expiration Date NDC Manufactu rer 60 mcg IM Left deltoid [id number] 10/21/20 05763-588-36 Se[employer] VIS Given Date VIS Provided VIS Publication Date 02/06/20 Single Vaccine 18 Eligibility Eligibility Date Funding Source Not [facility] Eligible 02/06/20 Private Assessment Plan Orders Other Orders: Orders: INJ - Influenza Vaccine Today Z23 Documented by User: Tiffany Jung NP 02/06/20 13:27 Intake Nurse Note Intake Visit Reasons: Flu shot Immunizations Afluria Qd (3yr up)(PF) Performing Provider: Tiffany Jung NP Administered by: Trinidad Rader on 02/06/20 12:59 Dose Route Admin Location Lot Number Expiration Date NDC Manufactu rer 60 mcg IM Left deltoid [id number] 10/21/20 59066-288-03 Seq[employer] VIS Given Date VIS Provided VIS Publication Date 02/06/20 Single Vaccine 18 Eligibility Eligibility Date Funding Source Not [facility] Eligible 02/06/20 Private Assessment Plan Orders Other Orders: Orders: INJ - Influenza Vaccine Today Z23 <Electronically signed by Tiffany Jung ENT NURSE> 02/06/20 1327 Name Value Range Interpretation Code Description Data Janki rce(s) Supporting Document(s) Procedure Social History Code Duration Value Status Description Data Source(s ) Smoking 01/19/2021 12:00:00 AM EDT Current Smoker completed Curre nt Smoker eCW1 ([facility]) Smoking 01/19/2021 12:00:00 AM EDT Current Smoker completed Curre nt Smoker eCW1 ([facility]) Smoking 01/19/2021 12:00:00 AM EDT Current Smoker completed Curre nt Smoker eCW1 ([facility]) Smoking 01/19/2021 12:00:00 AM EDT Current Smoker completed Curre nt Smoker eCW1 ([facility]) Smoking 01/19/2021 12:00:00 AM EDT Current Smoker completed Curre nt Smoker eCW1 ([facility]) Smoking 01/19/2021 12:00:00 AM EDT Current Smoker completed Curre nt Smoker eCW1 ([facility]) Smoking 01/05/2021 12:00:00 AM EDT Current Smoker completed Curre nt Smoker eCW1 ([facility]) Smoking 01/05/2021 12:00:00 AM EDT Current Smoker completed Curre nt Smoker eCW1 ([facility]) Smoking 10/05/2020 12:00:00 AM EDT Current Smoker completed Curre nt Smoker eCW1 ([facility]) Smoking 10/05/2020 12:00:00 AM EDT Current Smoker completed Curre nt Smoker eCW1 ([facility]) Smoking 06/25/2020 12:00:00 AM EST Current Smoker completed Curre nt Smoker eCW1 ([facility]) Smoking 06/25/2020 12:00:00 AM EST Current Smoker completed Curre nt Smoker eCW1 ([facility]) Smoking 06/25/2020 12:00:00 AM EST Current Smoker completed Curre nt Smoker eCW1 ([facility]) Smoking 05/22/2020 12:00:00 AM EST Current Smoker completed Curre nt Smoker eCW1 ([facility]) Smoking 05/22/2020 12:00:00 AM EST Current Smoker completed Curre nt Smoker eCW1 ([facility]) Smoking 05/22/2020 12:00:00 AM EST Current Smoker completed Curre nt Smoker eCW1 ([facility]) Smoking 05/22/2020 12:00:00 AM EST Current Smoker completed Curre nt Smoker eCW1 ([facility]) Smoking 05/11/2020 12:00:00 AM EST Current Smoker completed Curre nt Smoker eCW1 ([facility]) Smoking 02/14/2020 10:17:00 AM EDT Current every day smoker co mpleted Current every day smoker [facility] 02/14/2020 09:17:00 AM EDT No completed No [facility] 02/14/2020 09:17:00 AM EDT Current every day smoker co mpleted Current every day smoker [facility] Smoking 02/14/2020 09:17:00 AM EDT Current every day smoker co mpleted Current every day smoker [facility] 02/14/2020 09:17:00 AM EDT No completed No [facility] 02/14/2020 09:17:00 AM EDT Current every day smoker co mpleted Current every day smoker [facility] 02/14/2020 09:17:00 AM EDT No completed No [facility] 02/14/2020 09:17:00 AM EDT Current every day smoker co mpleted Current every day smoker [facility] Smoking 02/14/2020 09:17:00 AM EDT Current every day smoker co mpleted Current every day smoker [facility] Vital Signs ID Date Data Source UNK Name Value Range Interpretation Code Description Data Source(s) Body weight 218 [lb_av] 218 [lb_av] eCW1 ([facility]) Body height 69 [in_i] 69 [in_i] eCW1 ([facility]) Body mass index (BMI) [Ratio] 32.19 kg/m2 32.19 kg/m2 eCW1 ([facility]) Heart rate 72 /min 72 /min eCW1 ([facility]) Respiratory rate 18 /min 18 /min eCW1 ([facility]) Body temperature 98.4 [degF] 98.4 [degF] eCW1 ( [facility]) Systolic blood pressure 132 mm[Hg] 132 mm[Hg] e CW1 ([facility]) Diastolic blood pressure 78 mm[Hg] 78 mm[Hg] eCW1 ([facility]) Body weight 218 [lb_av] 218 [lb_av] eCW1 ([facility]) Heart rate 71 /min 71 /min eCW1 ([facility]) Respiratory rate 18 /min 18 /min eCW1 ([facility]) Body temperature 98.4 [degF] 98.4 [degF] eCW1 ( [facility]) Systolic blood pressure 136 mm[Hg] 136 mm[Hg] e CW1 ([facility]) Diastolic blood pressure 80 mm[Hg] 80 mm[Hg] eCW1 ([facility]) Body mass index (BMI) [Ratio] 32.19 kg/m2 32.19 kg/m2 eCW1 ([facility]) Body height 69 [in_i] 69 [in_i] eCW1 ([facility]) Body weight 98.88 kg 98.88 kg eCW1 ([facility]) Body weight 218 [lb_av] 218 [lb_av] eCW1 ([facility]) Body height 69 [in_i] 69 [in_i] eCW1 ([facility]) Body mass index (BMI) [Ratio] 32.19 kg/m2 32.19 kg/m2 eCW1 ([facility]) Heart rate 77 /min 77 /min eCW1 ([facility]) Respiratory rate 18 /min 18 /min eCW1 ([facility]) Body temperature 97.6 [degF] 97.6 [degF] eCW1 ( [facility]) Systolic blood pressure 140 mm[Hg] 140 mm[Hg] e CW1 ([facility]) Diastolic blood pressure 86 mm[Hg] 86 mm[Hg] eCW1 ([facility]) Systolic blood pressure 128 mm[Hg] 128 mm[Hg] M EDENT ([facility], ) Diastolic blood pressure 80 mm[Hg] 80 mm[Hg] [facility] ([facility]) Heart rate 74 /min 74 /min [facility] ([facility]) Oxygen saturation in Arterial blood by Pulse oximetry 98 % 98 % [facility] ([facility]) Room Air Body height 69 [in_i] 69 [in_i] [facility] 5'9" Body weight 218.00 [lb_av] 218.00 [lb_av] [facility] Body mass index (BMI) [Ratio] 32.2 kg/m2 32.2 k g/m2 [facility] ([facility]) [place] body weight 160 [lb_av] 160 [lb_av] [facility] Body weight 98.885 kg 98.885 kg [facility] ([facility]) Body surface area Derived from formula 2.14 m2 2.14 m2 [facility] ([facility]) Body height 69 [in_i] 69 [in_i] eCW1 ([facility]) Body weight 220.0 [lb_av] 220.0 [lb_av] eCW1 ([facility]) Body mass index (BMI) [Ratio] 32.48 kg/m2 32.48 kg/m2 eCW1 ([facility]) Systolic blood pressure 132 mm[Hg] 132 mm[Hg] e CW1 ([facility]) Diastolic blood pressure 74 mm[Hg] 74 mm[Hg] eCW1 ([facility]) Body weight 226.4 [lb_av] 226.4 [lb_av] eCW1 ([facility]) Body height 69 [in_i] 69 [in_i] eCW1 ([facility]) Body mass index (BMI) [Ratio] 33.43 kg/m2 33.43 kg/m2 eCW1 ([facility]) Heart rate 83 /min 83 /min eCW1 ([facility]) Body temperature 97.8 [degF] 97.8 [degF] eCW1 ( [facility]) Systolic blood pressure 142 mm[Hg] 142 mm[Hg] e CW1 ([facility]) Diastolic blood pressure 69 mm[Hg] 69 mm[Hg] eCW1 ([facility]) Diastolic blood pressure 76 mm[Hg] 76 mm[Hg] eCW1 ([facility]) Body weight 225.0 [lb_av] 225.0 [lb_av] eCW1 ([facility]) Body height 69 [in_i] 69 [in_i] eCW1 ([facility]) Body mass index (BMI) [Ratio] 33.22 kg/m2 33.22 kg/m2 eCW1 ([facility]) Systolic blood pressure 132 mm[Hg] 132 mm[Hg] e CW1 ([facility]) Body weight 224 [lb_av] 224 [lb_av] eCW1 ([facility]) Body height 69 [in_i] 69 [in_i] eCW1 ([facility]) Body mass index (BMI) [Ratio] 33.08 kg/m2 33.08 kg/m2 eCW1 ([facility]) Systolic blood pressure 130 mm[Hg] 130 mm[Hg] e CW1 ([facility]) Diastolic blood pressure 76 mm[Hg] 76 mm[Hg] eCW1 ([facility]) Patient Treatment Plan of Care Planned Activity Planned Date Details Description Data Source (s) Ciprofloxacin 500 MG Oral Tablet [Cipro] 01/05/2021 12:00:00 AM EDT eCW1 ([facility]) Sodium Phosphate, Dibasic 59.3 MG/ML / S odium Phosphate, Monobasic 161 MG/ML Enema 01/05/2021 12:00:00 AM EDT eCW1 ([facility]) Ciprofloxacin 500 MG Oral Tablet [Cipro] 01/05/2021 12:00:00 AM EDT eCW1 ([facility]) Sodium Phosphate, Dibasic 59.3 MG/ML / S odium Phosphate, Monobasic 161 MG/ML Enema 01/05/2021 12:00:00 AM EDT eCW1 ([facility]) Tacrolimus 0.001 MG/MG Topical Ointment [Protopic] 10/05/2020 12 :00:00 AM EDT eCW1 ([facility]) Tacrolimus 0.001 MG/MG Topical Ointment [Protopic] 10/05/2020 12 :00:00 AM EDT eCW1 ([facility]) Ciprofloxacin 500 MG Oral Tablet [Cipro] 06/25/2020 12:00:00 AM EST eCW1 ([facility]) Ciprofloxacin 500 MG Oral Tablet [Cipro] 06/25/2020 12:00:00 AM EST eCW1 ([facility]) Ciprofloxacin 500 MG Oral Tablet [Cipro] 06/25/2020 12:00:00 AM EST eCW1 ([facility]) ciclopirox 7.7 MG/ML Topical Cream 05/22/2020 12:00:00 AM EST eCW1 ([facility]) ciclopirox 7.7 MG/ML Topical Cream 05/22/2020 12:00:00 AM EST eCW1 ([facility]) ciclopirox 7.7 MG/ML Topical Cream 05/22/2020 12:00:00 AM EST eCW1 ([facility]) ciclopirox 7.7 MG/ML Topical Cream 05/22/2020 12:00:00 AM EST eCW1 ([facility])
[2021-03-09] MEDS ORDERED: LIDOCAINE 1% SDV 30ML VIAL As Ordered ONE (07:15)
[2021-03-09] MEDS ORDERED: BUPIVACAINE HCL 0.25% 30ML VIAL As Ordered ONE (07:16)
[2021-03-09] MEDS ORDERED: MIDAZOLAM INJ 2MG/2ML VIAL (J2250 PER 1MG) As Ordered ONE (07:17)
[2021-03-09] MEDS ORDERED: dexameTHASONE 4 MG/ML 1ML VIAL (J1100 PER 1MG) As Ordered ONE (07:17)
[2021-03-09] MEDS ORDERED: HYDROmorphone HCL 2 MG/ML 1ML VIAL As Ordered ONE (07:17)
[2021-03-09] MEDS ORDERED: ROCURONIUM BROMIDE 50 MG/5 ML VIAL As Ordered ONE ×2 (07:17→10:20)
[2021-03-09] MEDS ORDERED: fentaNYL 250 MCG/5 ML INJECTION (J3010) As Ordered ONE (07:17)
[2021-03-09] MEDS ORDERED: LIDOCAINE 2% 100MG/5ML SDV (FOR ANES.) As Ordered ONE (07:17)
[2021-03-09] MEDS ORDERED: ONDANSETRON 4MG/2ML VIAL As Ordered ONE (07:17)
[2021-03-09] MEDS ORDERED: SUGAMMADEX SODIUM 500 MG/5 ML VIAL (BRIDION) As Ordered ONE (07:17)
[2021-03-09] MEDS ORDERED: METOCLOPRAMIDE INJ 10MG/2ML VIAL (J2765 PER 1) As Ordered ONE (07:17)
[2021-03-09] MEDS ORDERED: propofoL 200 MG/20 ML VIAL As Ordered ONE (07:17)
[2021-03-09] MEDS ORDERED: ACETAMINOPHEN 1000MG 100ML IV BTL (OFIRMEV) (J0131 PER 10MG) As Ordered ONE (07:19)
[2021-03-09] MEDS ORDERED: ONDANSETRON 4MG/2ML VIAL IV PRN ×2 (07:30→14:05)
[2021-03-09] MEDS ORDERED: ACETAMINOPHEN TAB 650MG DOSE (2X325MG) PO PRN (07:30)
[2021-03-09] MEDS ORDERED: LACRILUBE (AKWA TEARS) OPHTH OINT 3.5 GM As Ordered ONE (07:49)
[2021-03-09] MEDS ORDERED: LABETALOL 100MG/20ML VIAL As Ordered ONE (08:32)
[2021-03-09] MEDS ORDERED: hydrALAZINE 20MG/ML 1ML VIAL (J0360 PER 20MG) As Ordered ONE (08:50)
[2021-03-09] MEDS ORDERED: fentaNYL 100 MCG/2 ML INJECTION (J3010) As Ordered ONE (09:49)
[2021-03-09] MEDS ORDERED: DESFLURANE 240 ML INHALANT As Ordered ONE (12:14)
[2021-03-09 13:11] LABS: HEMATOCRIT 42.2 % (42.0-52.0); HEMOGLOBIN 14.3 g/dl (13.5-17.5); MEAN CORPUSCULAR HEMOGLOBIN 30.1 pg (27.0-33.0); MEAN CORPUSCULAR HGB CONC 33.9 g/dl (32.0-36.5); MEAN CORPUSCULAR VOLUME 88.8 fl (80.0-96.0); PLATELET COUNT, AUTOMATED 259 10^3/uL (150-450); RED BLOOD COUNT 4.75 10^6/uL (4.30-6.10)
[2021-03-09 13:33] LABS: BLOOD UREA NITROGEN 19 MG/DL (7-18); CALCIUM LEVEL 8.5 MG/DL (8.8-10.2); CARBON DIOXIDE LEVEL 25 MEQ/L (21-32); CHLORIDE LEVEL 107 MEQ/L (98-107); CREATININE FOR GFR 1.27 MG/DL (0.70-1.30); GLOMERULAR FILTRATION RATE > 60.0 (>49); GLUCOSE, FASTING 154 MG/DL (70-100); POTASSIUM SERUM 4.3 MEQ/L (3.5-5.1); SODIUM LEVEL 140 MEQ/L (136-145)
--- NOTE | 2021-03-09 13:34 | ROOPDOC ---
[facility] Report Of Operation Report of Operation DATE OF PROCEDURE: 03/09/21 PREPROCEDURE DIAGNOSIS: Prostate cancer. POSTPROCEDURE DIAGNOSIS: Prostate cancer. PROCEDURE: Robotic-assisted laparoscopic radical prostatectomy with bilateral pelvic lymph node dissection. SURGEON: Teresa Rodriguez MD TOOL DISPATCHER: None ANESTHESIA: General. OPERATIVE INDICATIONS: This is a 65 year old male with intermediate risk clinical T1c [place] 3+4 prostate cancer. After a discussion of the options for treatment, he elected to undergo the above procedure. DESCRIPTION OF PROCEDURE: The patient was brought to the operating room and general anesthesia was induced. Prophylactic antibiotics were infused. He was then placed in the dorsal lithotomy position and prepped and draped in the usual sterile fashion. At this point, a Pugh catheter was inserted into the bladder and the balloon was filled with 10 mL of sterile water. We then made a midline incision just above the umbilicus for an 8 mm port. A Veress needle was utilized to achieve pneumoperitoneum. Next, an 8 mm port was inserted into the incision and subsequently a camera was inserted. There were no injuries from the Veress needle or initial trocar placement. At this point, we placed the remaining ports, including a 12 mm registered sales assistant port and then three robotic ports in the usual configuration. Once all the ports were placed, the robot was docked. Lysis of adhesions between the sigmoid colon and abdominal wall was then performed. The bladder was then released from the anterior abdominal wall using electrocautery. Once the bladder was dropped, the fat overlying the prostate was cleared using electrocautery. The superficial dorsal vein was controlled with electrocautery. The endopelvic fascia was opened on both sides and the dorsal venous complex was cleared. Next, a #0 Vicryl [id number] stitch was placed around the dorsal venous complex. Once that was done, the bladder was opened and dissected away from the prostate. At this point, the prostate was lifted up. The vasa deferentia were identified in the midline. They were then ligated and transected. Both seminal vesicles were dissected free. I then carefully dissected the right neurovascular bundle off of the prostate using cold scissors. The rectum was safely mobilized away from the prostate. Bilateral prostatic pedicles were taken using the SynchroSeal. The pedicles were carried towards the apex. After taking care of the pedicles and mobilizing the rectum off the prostate below, the prostate was only connected by the urethra. At this point, the dorsal venous complex was transected with electrocautery. The urethra was then opened and the catheter was withdrawn and the posterior urethra was transected, thus freeing the prostate. At this point, we checked for hemostasis and it did appear very good. Next, we performed bilateral pelvic lymph node dissection. This was done in a standard fashion. The limits of dissection were the iliac vein proximally, the obturator nerve distally, the pelvic sidewall laterally, and the bladder medially. All lymphatic tissue within these limits was removed. I performed the same procedure on both the right and left sides. Hemostasis was then obtained with bipolar electrocautery. The lymphatic packets were then placed in separate Endo Catch bags for future retrieval. Once hemostasis was confirmed, I then moved on to perform the vesicourethral anastomosis. This was performed with a Quill stitch in a running fashion. Once this was done, the final #20-Slovenian Pugh catheter was placed. The balloon was filled with 15 mL of sterile water. Upon completion of the vesicourethral anastomosis, it was tested by filling the bladder with sterile saline water. The anastomosis appeared to be watertight. At this point, the prostate and seminal vesicles were placed in an Endo Catch bag for future retrieval. Next, a Ede- Rowell drain was brought in through the left robotic port skin site and the drain was positioned anterior to the bladder. The robot was then undocked. A Simone-Harish fascial closure device was utilized to place a #0 Vicryl suture between the fascia of the 12 mm registered sales assistant port. The drain was secured to the skin with #2-0 Ethilon suture. The prostate, as well as the lymphatic packets were then extracted from the camera port site after the skin was extended. The fascia in this incision was then closed with a running #0 Vicryl stitch. I then looked back in the abdomen and no intraabdominal contents were caught in the extraction site fascial closure. Next, all the remaining ports were removed and there did not appear to be any bleeding from any of the port sites. The previously placed #0 Vicryl free ties through the registered sales assistant port were then tied down and all incisions were irrigated. All of the incisions were then closed with running subcuticular #4-0 Monocryl sutures. Local anesthesia was applied. Dermabond was then applied to the incisions. This marked the conclusion of the procedure. The patient was then taken out of the dorsal lithotomy position, awakened from anesthesia and transported to the recovery room in stable condition. ESTIMATED BLOOD LOSS: 250 mL. COMPLICATIONS: None. SPECIMENS: Prostate, right pelvic lymph nodes, left pelvic lymph nodes. PLAN: The patient will be admitted to the hospital postoperatively, and he will likely be discharged home within the next 1-2 days. TERESA RODRIGUEZ MD Mar 09, 2021 07:47
[2021-03-09] MEDS ORDERED: LR 1,000 ML IV SCH (14:05)
[2021-03-09] MEDS ORDERED: HYDROMORPHONE HCL 0.5 MG/ 0.5 ML SYRINGE (J1170 PER 1) IV PRN (14:05)
[2021-03-09] MEDS ORDERED: oxyCODONE 5MG TAB PO PRN (14:05)
[2021-03-09] MEDS ORDERED: fentaNYL 100 MCG/2 ML INJECTION (J3010) IV PRN (14:05)
[2021-03-09] MEDS: NS 1,000 ML IV SCH (16:23)
[2021-03-09] MEDS: ceFAZolin SOD 1 GM in D5W MINI-BAG PLUS 50 ML IV SCH (16:23)
[2021-03-09 16:50] VITALS: BP 168/81
[2021-03-09] MEDS: PERCOCET 5MG/325MG TAB PO PRN ×2 (17:39→22:32)
[2021-03-09 18:00] VITALS: BP 122/83
[2021-03-09 18:50] VITALS: BP 119/70
[2021-03-09 19:50] VITALS: BP 118/70
[2021-03-09 20:50] VITALS: BP 116/73
[2021-03-09] MEDS: DOCUSATE SODIUM 100MG CAPSULE PO SCH (22:32)
[2021-03-09] MEDS: HEPARIN SOD (PORCINE) 5000UNITS/ML 1ML VIAL/SYRINGE SC SCH (22:32)
[2021-03-10 01:00] VITALS: BP 134/77
[2021-03-10] MEDS: ceFAZolin SOD 1 GM in D5W MINI-BAG PLUS 50 ML IV SCH (01:16)
[2021-03-10] MEDS: NS 1,000 ML IV SCH (03:42)
[2021-03-10 05:00] VITALS: BP 148/80
[2021-03-10] MEDS: HEPARIN SOD (PORCINE) 5000UNITS/ML 1ML VIAL/SYRINGE SC SCH ×2 (05:29→14:00)
[2021-03-10] MEDS: PERCOCET 5MG/325MG TAB PO PRN ×3 (05:29→13:41)
[2021-03-10 07:02] LABS: HEMATOCRIT 37.3 % (42.0-52.0); MEAN CORPUSCULAR HEMOGLOBIN 29.9 pg (27.0-33.0); MEAN CORPUSCULAR HGB CONC 32.7 g/dl (32.0-36.5); MEAN CORPUSCULAR VOLUME 91.4 fl (80.0-96.0); PLATELET COUNT, AUTOMATED 198 10^3/uL (150-450); RED BLOOD COUNT 4.08 10^6/uL (4.30-6.10); WHITE BLOOD COUNT 9.6 10^3/uL (4.0-10.0)
[2021-03-10 07:08] LABS: HEMOGLOBIN 12.2 g/dl (13.5-17.5)
[2021-03-10 07:17] LABS: BLOOD UREA NITROGEN 13 MG/DL (7-18); CARBON DIOXIDE LEVEL 29 MEQ/L (21-32); CHLORIDE LEVEL 107 MEQ/L (98-107); CREATININE FOR GFR 0.92 MG/DL (0.70-1.30); GLOMERULAR FILTRATION RATE > 60.0 (>49); GLUCOSE, FASTING 113 MG/DL (70-100); POTASSIUM SERUM 4.3 MEQ/L (3.5-5.1); SODIUM LEVEL 140 MEQ/L (136-145)
--- NOTE | 2021-03-10 07:37 | IPNPDOC ---
Subjective Review oF Systems Chief Complaint The patient is a 65-year-old male admitted with a reason for visit of Prostate Cancer. Events since Last Encounter No acute events o/n. Good pain control. No n/v. Has not ambulated yet. No f/c/ns. Objective Physical Examination General Exam: Alert, Cooperative, No Acute Distress ABDOMEN EXAM: Soft, Tenderness (minimal), Other (incisions clean/dry/intact; LUCIANA w/ serosanguinous output) Skin Exam: Nl turgor and temperature Neuro Exam: Normal Speech Psych Exam: Mental status NL, Mood NL Other physical findings catheter draining clear yellow urine Vital Signs/I&O Vital Signs Date Time Temp Pulse Resp B/P (MAP) Pulse Ox O2 Delivery O2 Flow Rate FiO2 03/10/21 05:29 20 Room Air 03/10/21 01:00 98.3 94 134/77 (96) 92 03/09/21 17:00 3.0 I&O- Last 24 Hours up to 6 AM 03/10/21 06:00 Intake Total 3750 ml Output Total 1780 ml Balance 1970 ml Laboratory Data Labs 24H Laboratory Tests 2 03/09/21 12:58: Nucleated Red Blood Cells % (auto) 0.0, Anion Gap 8, Glomerular Filtration Rate > 60.0, Calcium Level 8.5L 03/10/21 06:31: Nucleated Red Blood Cells % (auto) 0.0, Anion Gap 4L, Glomerular Filtration Rate > 60.0, Calcium Level 8.0L CBC/BMP Laboratory Tests 03/09/21 12:58 03/10/21 06:31 Assessment/Plan Date Seen The patient was seen on 03/10/21. Patient Summary This is a 65 y/o M POD1 s/p RALP w/ BPLND. He feels well. His Hb is 12.2. Cr is 0.9. Good UOP. Normal LUCIANA output. Plan/VTE VTE Prophylaxis Ordered?: Yes VTE Exclusion Mechanical Proph: N/A:VTE Prophy Ordered VTE Exclusion Pharmacological: N/A:VTE Prophy Ordered Plan/Urinary Catheter Urinary Catheter: Other Catheter: (catheter to stay in for at least 7 days for healing of the vesicourethral anastomosis) Plan - d/c IVF - percocet prn pain - ambulate - SCDs when in bed - strict I/Os - SQH - incentive spirometry - regular diet - possible discharge home later today w/ catheter (will likely remove LUCIANA drain prior to discharge) TERESA RODIRGUEZ MD Mar 10, 2021 07:37
[2021-03-10] MEDS ORDERED: CIPR-249 PO (08:32)
[2021-03-10] MEDS ORDERED: COLA100C5 PO (08:32)
[2021-03-10] MEDS ORDERED: PERCOCET PO (08:32)
[2021-03-10 09:00] VITALS: BP 142/73
[2021-03-10] MEDS ORDERED: VERAPAMIL 120 MG SR TAB PO SCH (09:00)
[2021-03-10 09:18] VITALS: BP 148/80
[2021-03-10] MEDS: DOCUSATE SODIUM 100MG CAPSULE PO SCH (09:18)
[2021-03-10 14:00] VITALS: BP 124/70
--- NOTE | 2021-03-10 18:56 | DSES ---
DISCHARGE SUMMARY DATE OF ADMISSION: 03/09/2021 DATE OF DISCHARGE: 03/10/2021 ADMISSION DIAGNOSIS: Prostate cancer. DISCHARGE DIAGNOSIS: Prostate cancer. ADMITTING PHYSICIAN: Paulo Wilson M.D. DISCHARGE PHYSICIAN: Paulo Wilson M.D. PROCEDURE PERFORMED: Robotic-assisted laparoscopic radical prostatectomy, bilateral pelvic lymph node dissection, March 09, 2021. HISTORY OF PRESENT ILLNESS: This is a 65-year-old male with intermediate risk prostate cancer who underwent the above listed procedure for treatment. He was admitted to the hospital postoperatively. HOSPITALIZATION COURSE: The patient was admitted to the hospital after undergoing the above-listed surgery. His postoperative course was unremarkable. On postoperative day #1, all of his labs were within acceptable limits. Specifically, his hemoglobin was 12.2 and his serum creatinine was 0.92. He had excellent urine output during his hospital stay and normal output from his Ede-Rowell drain. On postoperative day #1, all his intravenous (IV) fluids were discontinued. We got him ambulating and he ambulated well. His diet was advanced and he tolerated a regular diet without nausea or vomiting. His pain was well controlled with oral pain medication. On the afternoon of postoperative day #1, he was deemed ready for discharge home. His Ede-Rowell drain was removed. He was discharged home with his catheter in place with a plan for a followup in urology clinic in approximately one week for catheter removal and to discuss his pathology results.
== END 2021-03-10 17:19 | disposition home or self-care (01) | DRG 484 ==
LOC: M OR 06:20 → M MSPAV 16:42
PROVIDERS: ADMIT Urology; ATTEND Urology
PROC: 0VT04ZZ Resection of Prostate, Percutaneous Endoscopic Approach (ICD-10-PCS; 2021-03-09)
PROC: 07BC4ZX Excision of Pelvis Lymphatic, Percutaneous Endoscopic Approach, Diagnostic (ICD-10-PCS; 2021-03-09)
PROC: 8E0W4CZ Robotic Assisted Procedure of Trunk Region, Percutaneous Endoscopic Approach (ICD-10-PCS; principal; 2021-03-09 07:30)
DX: C61 Malignant neoplasm of prostate (principal); F17.200 Nicotine dependence, unspecified, uncomplicated; G47.33 Obstructive sleep apnea (adult) (pediatric); L40.8 Other psoriasis

== ENCOUNTER → 2021-04-19 | Outpatient (CLI) | payer OTHER ==
[~2021-04-19] MED LIST changes: +CIPR-249 PO; +COLA100C5 PO; -HEPARIN SOD (PORCINE) 5000UNITS/ML 1ML VIAL/SYRINGE SQ ONE; -LR 1,000 ML IV ONE; +PERCOCET PO; -ceFAZolin SOD 2 GM in IV 1 EA IV ONE
== END ==
LOC: M PLALAB 09:06
PROVIDERS: ATTEND Urology
DX: C61 Malignant neoplasm of prostate (principal)

== ENCOUNTER → 2021-07-20 | Outpatient (CLI) | payer OTHER | LOC: M LAB 13:10 | PROVIDERS: ATTEND Urology | DX: C61 Malignant neoplasm of prostate (principal) ==

== ENCOUNTER → 2021-11-08 | Outpatient (CLI) | payer OTHER | LOC: M LAB 13:18 | PROVIDERS: ATTEND Urology | DX: C61 Malignant neoplasm of prostate (principal) ==

== ENCOUNTER → 2022-02-09 | Outpatient (CLI) | payer OTHER | LOC: M LAB 12:33 | PROVIDERS: ATTEND Urology | DX: C61 Malignant neoplasm of prostate (principal) ==

== ENCOUNTER → 2023-03-13 | Outpatient (CLI) | payer MEDICARE ==
[~2023-03-13] MED LIST changes: +ELIQ5TAB PO; +METO25TA4 PO
== END ==
LOC: M LAB 12:36
PROVIDERS: ATTEND Urology
DX: C61 Malignant neoplasm of prostate (principal)

== ENCOUNTER → 2024-08-29 | Outpatient (CLI) | payer MEDICARE | LOC: M PLAIMG 07:47 | PROVIDERS: ATTEND Registered Nurse | DX: I77.810 Thoracic aortic ectasia (principal) ==

== ENCOUNTER → 2024-10-30 | Outpatient (CLI) | payer MEDICARE | LOC: M LAB 13:51 | PROVIDERS: ATTEND Urology | DX: C61 Malignant neoplasm of prostate (principal) ==